=== PATIENT | male | born 1975 | race Caucasian/White ===

== ENCOUNTER → 2021-02-26 | Outpatient (CLI) | payer BC ==
--- NOTE | 2021-02-26 11:07 | XR ---
EXAMINATION TYPE: XR chest 2V DATE OF EXAM: 02/26/2021 COMPARISON: NONE HISTORY: Cough and congestion for 3 weeks. TECHNIQUE: Frontal and lateral views of the chest are obtained. FINDINGS: There is no focal air space opacity, pleural effusion, or pneumothorax seen. The cardiac silhouette size is within normal limits. The osseous structures are intact. IMPRESSION: No suspicious acute pulmonary process.
== END | disposition home or self-care (01) ==
LOC: RADXRYALE 10:45
PROVIDERS: ATTEND Physician Assistant Medical
DX: R09.89 Other specified symptoms and signs involving the circulatory and respiratory systems (principal)
CPT/HCPCS: 71046

== ENCOUNTER → 2022-01-20 | Outpatient (CLI) | payer BC ==
--- NOTE | 2022-01-20 10:15 | XR ---
EXAMINATION TYPE: XR chest 2V DATE OF EXAM: 01/20/2022 COMPARISON: 02/26/2021 INDICATION: Pain behind shoulder blade TECHNIQUE: Frontal and lateral views of the chest are obtained. FINDINGS: The heart size is normal. The pulmonary vasculature is normal. The lungs are clear. Osseous structures appear unremarkable. There is some scoliosis through the tho racic spine which is stable. IMPRESSION: 1. No acute pulmonary process.
== END | disposition home or self-care (01) ==
LOC: RADXRYALE 09:39
PROVIDERS: ATTEND Physician Assistant Medical
DX: R10.11 Right upper quadrant pain (principal); E11.9 Type 2 diabetes mellitus without complications
CPT/HCPCS: 71046

== ENCOUNTER → 2022-02-03 | Outpatient (CLI) | payer BC ==
--- NOTE | 2022-02-03 12:58 | US ---
EXAMINATION TYPE: US abdomen limited DATE OF EXAM: 02/03/2022 COMPARISON: NONE CLINICAL HISTORY: R10.11 RT UPPER QUADRANT PAIN. RUQ pain. EXAM MEASUREMENTS: Liver Length: 15.1 cm Gallbladder Wall: 0.20 cm CBD: 0.33 cm Right Kidney: 12.8 x 6.1 x 6.2 cm Limited due to gas and patient body habitus. Pancreas: Limited visibility. Liver: Appears coarse/heterogeneous in echotexture. Gallbladder: Hyperechoic area seen that appears to be attached to the gallbladder wall: 0.4 x 0.3 x 0.2 cm. Evidence for sonographic Mata's sign: No CBD: Portions seen appear wnl Right Kidney: No hydronephrosis or masses seen. Appears slightly enlarged. Visualized liver appears within normal limits. Visualized gallbladder shows no shadowing mobile galls tones. No right-sided hydronephrosis. Possible tiny 3 mm polyp. The visualized pancreas unremarkable. IMPRESSION: No gallstones or ultrasound evidence for acute cholecystitis.
== END | disposition home or self-care (01) ==
LOC: RADUSWWP 12:18
PROVIDERS: ATTEND Family Medicine
DX: R10.11 Right upper quadrant pain (principal)
CPT/HCPCS: 76705

== ENCOUNTER 2022-03-11 09:11 | Day surgery (SDC) | payer BC ==
[~2022-03-11 09:11] MED LIST: LACTATED RINGERS 1,000 ML IV SCH
[2022-03-11 09:54] LABS: Glucose,Whole Blood 103 mg/dL (70-110)
[2022-03-11 09:55] VITALS: RESP 16; TEMP 97
[2022-03-11] MEDS ORDERED: PROPOFOL 10 MG/ML 20 ML VIAL IV ONE (10:52)
--- NOTE | 2022-03-11 11:10 | P.PCN ---
Date of Procedure: 03/11/22 Procedure(s) Performed: BRIEF HISTORY: Patient is a 46-year-old pleasant white male scheduled for an elective colonoscopy as a part of screening for colorectal neoplasia. PROCEDURE PERFORMED: Colonoscopy with snare polypectomy. PREOPERATIVE DIAGNOSIS: Screening for colon cancer. IV sedation per Anesthesia. PROCEDURE: After informed consent was obtained, the patient, was brought into the endoscopy unit. IV sedation was administered by Anesthesia under continuous monitoring. Digital rectal examination was normal. Initially the Olympus CF-160 flexible video colonoscope was then inserted in the rectum, gradually advanced into the cecum without any difficulty. Careful examination was performed as the scope was gradually being withdrawn. Ileocecal valve and the appendiceal orifice were visualized and appeared normal. Prep was excellent. Mucosa of the cecum, ascending colon, a normal. In the transverse colon there was a 4 mm and 5 mm sessile polyp removed by snare polypectomy. In the sigmoid colon there was a 5 mm and 1 cm polyp removed by snare polypectomy. Rest of the transverse colon, descending colon, sigmoid colon, and rectum appeared normal. Retroflexion was performed in the rectum and no lesions were seen. The patient tolerated the procedure well. IMPRESSION: 4 mm and 5 mm transverse colon polyp status post polypectomy 3 mm and 1 cm sigmoid colon polyp status post polypectomy RECOMMENDATIONS: Findings of this examination were discussed with the patient as his family. He was advised to follow with the biopsy results. If the biopsy reveals adenoma he can have a repeat colonoscopy in 3 years.
[2022-03-11 11:29] VITALS: BP 104/70; PULSE 72
== END 2022-03-11 11:45 | disposition home or self-care (01) ==
LOC: ORWHC2ENDO 09:11
PROVIDERS: ATTEND Internal Medicine Gastroenterology
DX: Z12.11 Encounter for screening for malignant neoplasm of colon (principal); D12.5 Benign neoplasm of sigmoid colon; D12.3 Benign neoplasm of transverse colon; E11.69 Type 2 diabetes mellitus with other specified complication; E78.5 Hyperlipidemia, unspecified; I10 Essential (primary) hypertension; Z79.84 Long term (current) use of oral hypoglycemic drugs; Z79.899 Other long term (current) drug therapy
CPT/HCPCS: 88305; 45385; J2704

== ENCOUNTER 2023-03-19 16:34 | Inpatient (IN) | payer BC ==
[2023-03-19] MEDS ORDERED: KETOROLAC 15 MG/ML 1 ML VIAL IVP STA (16:55)
[2023-03-19] MEDS ORDERED: ONDANSETRON 4 MG/2 ML VIAL IVP STA (16:55)
--- NOTE | 2023-03-19 16:55 | ED ---
General Adult HPI <Shahriar Vargas - Last Filed: 03/19/23 16:55> <Dalia Arredondo - Last Filed: 03/20/23 02:02> - General Stated complaint: AMS N/V/D rash Time Seen by Provider: 03/19/23 20:15 - History of Present Illness Initial comments: A 47-year-old male presenting to the ED with chief complaint of headache. Per , last week onset of rash and headache. Seen by PCP and was told symptoms likely viral in nature. Given a prednisone shot. Since then he reports continuous symptoms. Additionally last night states patient started to ex perience nausea, vomiting, and confusion. (AliciaShahriar) 47 year old male presents emergency department with chief complaint of rash and fever. Patient developed the rash on Thursday. It was located all over his body. Denies that it is pruritic. He was seen by his primary care on Thursday. He was diagnosed with a viral syndrome and was started on prednisone. States that the patient has gotten progressively worse. Over the past couple of days the patient has not been able to eat or drink anything. He has had significant nausea with vomiting. Unable to hold anything down. He has also developed a fever. He took Tylenol at 1 PM. Admits to a headache which waxes and wanes. Denies any neck pain. No shortness of breath however it is noted that the patient is hypoxic with oxygen saturations in the mid 80s. He denies cough. No chest pain. No abdominal pain. No changes in his bladder habits. Does admit to diarrhea. No sick contacts. No history of intravenous drug use. states that the patient has been extremely fatigued and slow to respond. Denies any slurred speech. Patient remains alert and oriented. 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 <FainaShahriar wheat - Last Filed: 03/19/23 16:55> ROS Other: All systems not noted in ROS Statement are negative. <Dalia Arredondo - Last Filed: 03/20/23 02:02> ROS Statement: Those systems with pertinent positive or pertinent negative responses have been documented in the HPI. Past Medical History Past Medical History: Diabetes Mellitus, Hyperlipidemia, Hypertension Additional Past Medical History / Comment(s): HAS FREECopybarYLE BS MONITORING DEVICE. History of Any Multi-Drug Resistant Organisms: None Reported Additional Past Surgical History / Comment(s): VASECTOMY. WISDOM TEETH Past Anesthesia/Blood Transfusion Reactions: No Reported Reaction Past Psychological History: No Psychological Hx Reported Smoking Status: Never smoker Past Alcohol Use History: Rare Past Drug Use History: None Reported <FainaShahriar wheat - Last Filed: 03/19/23 16:55> General Exam General appearance: alert, other (Appears fatigued) Head exam: Present: atraumatic, normocephalic, normal inspection Eye exam: Present: normal appearance, PERRL, EOMI. Absent: scleral icterus, conjunctival injection, periorbital swelling ENT exam: Present: normal exam, mucous membranes moist Neck exam: Present: normal inspection. Absent: tenderness, meningismus, lymphadenopathy Respiratory exam: Present: normal lung sounds bilaterally. Absent: respiratory distress, wheezes, rales, rhonchi, stridor Cardiovascular Exam: Present: regular rate, normal rhythm, normal heart sounds. Absent: systolic murmur, diastolic murmur, rubs, gallop, clicks GI/Abdominal exam: Present: soft, normal bowel sounds. Absent: distended, tenderness, guarding, rebound, rigid Extremities exam: Present: normal inspection, full ROM, normal capillary refill. Absent: tenderness, pedal edema, joint swelling, calf tenderness Back exam: Present: normal inspection Neurological exam: Present: alert, oriented X3, CN II-XII intact Psychiatric exam: Present: normal affect, normal mood Skin exam: Present: warm, dry, diaphoretic. Absent: rash <Dalia Arredondo - Last Filed: 03/20/23 02:02> Course Vital Signs 03/19/23 03/19/23 03/19/23 16:47 19:58 21:00 Temperature 99.2 F 102.7 F H Pulse Rate 82 94 Respiratory 20 18 20 Rate Blood Pressure 115/71 158/84 158/84 O2 Sat by Pulse 99 100 90 L Oximetry 03/19/23 03/19/23 03/20/23 21:01 22:04 00:51 Temperature 97.5 F L 97.9 F Pulse Rate 78 75 Respiratory 20 20 Rate Blood Pressure 121/64 124/83 O2 Sat by Pulse 90 L 97 99 Oximetry Medical Decision Making - Lab Data Result diagrams: 03/19/23 20:05 03/19/23 20:05 <Dalia Arredondo - Last Filed: 03/20/23 02:02> - Medical Decision Making Was pt. sent in by a medical professional or institution (, PA, ELECTRONIC WARFARE TECHNICIAN, urgent care, hospital, or long-term...) When possible be specific @ -No Did you speak to anyone other than the patient for history (EMS, parent, family, police, friend...)? What history was obtained from this source @ -Patient's does provide history Did you review nursing and triage notes (agree or disagree)? Why? @ -I reviewed and agree with nursing and triage notes Were old charts reviewed (outside hosp., previous admission, EMS record, old EKG, old radiological studies, urgent care reports/EKG's, long-term records)? Report findings @ -No old charts were reviewed Differential Diagnosis (chest pain, altered mental status, abdominal pain women, abdominal pain men, vaginal bleeding, weakness, fever, dyspnea, syncope, headache, dizziness, GI bleed, back pain, seizure, CVA, palpatations, mental health, musculoskeletal)? @ -Differential Fever: Pneumonia, viral URI, endocarditis, myocarditis, pericarditis, otitis, sinusitis, peritonsillar Abscess, retropharyngeal Abscess, epiglottitis, peritonitis, appendicitis, Tiki cystitis, diverticulitis, hepatitis, colitis, UTI, PID, TOA, pyelonephritis, prostatitis, epididymitis, meningitis, encephalitis, pulmonary embolism, CVA, thyroid storm, pancreatitis, adrenal c risis, cavernous sinus thrombosis, this is not meant to be an all-inclusive list. EKG interpreted by me (3pts min.). @ -Yes and demonstrates sinus rhythm with a rate of 81. MA interval 156. QRS 106. QTC 403. Inverted T waves in 2, 3, aVF. No acute ST segment elevations X-rays interpreted by me (1pt min.). @ -Yes and demonstrates no acute intrathoracic process CT interpreted by me (1pt min.). @ -Yes and demonstrates no acute intracranial process U/S interpreted by me (1pt. min.). @ -None done What testing was considered but not performed or refused? (CT, X-rays, U/S, labs)? Why? @ -LP - patient reports resolution of headache with fever control What meds were considered but not given or refused? Why? @ -None Did you discuss the management of the patient with other professionals (professionals i.e. , PA, ELECTRONIC WARFARE TECHNICIAN, lab, RT, psych nurse, director of social media marketing, campaign assistant, teacher, promotions officer, transplant case manager)? Give summary @ -With Dr. Ellis who agreed to admit the patient. Was smoking cessation discussed for >3mins.? @ -No Was critical care preformed (if so, how long)? @ -No Were there social determinants of health that impacted care today? How? (Homelessness, low income, unemployed, alcoholism, drug addiction, tr ansportation, low edu. Level, literacy, decrease access to med. care, shelter, rehab)? @ -No Was there de-escalation of care discussed even if they declined (Discuss DNR or withdrawal of care, Hospice)? DNR status @ -No What co-morbidities impacted this encounter? (DM, HTN, Smoking, COPD, CAD, Cancer, CVA, ARF, Chemo, Hep., AIDS, mental health diagnosis, sleep apnea, morbid obesity)? @ -Diabetes mellitus Was patient admitted / discharged? Hospital course, mention meds given and route, prescriptions, significant lab abnormalities, going to OR and other pertinent info. @ -Upon arrival patient was placed into room 22. A thorough history and physical exam was performed. Patient does have fever which is treated with Motrin. Laboratory studies were conducted. Chest x-ray is performed due to his hypoxia. Patient has mild leukocytosis likely secondary to steroid use. Viral swab is negative. He is placed on 2 L oxygen due to his hypoxia. I discussed diagnosis, differential and treatment options. Patient will be admitted for fluids, antipyretics and nausea medications. He is reevaluated after these medications have been given and states that he has marked improvement in his symptoms. Headache has resolved with fever control. He has no neck stiffness. Patient was agreeable to admission. Spoke with Dr. Barnett who agreed to admit the patient. I will place infectious disease on consult Undiagnosed new problem with uncertain prognosis? @ -Yes Drug Therapy requiring intensive monitoring for toxicity (Heparin, Nitro, Insulin, Cardizem)? @ -No Were any procedures done? @ -No Diagnosis/symptom? @ -Acute rash, acute pyrexia, hypoxia, nausea and vomiting Acute, or Chronic, or Acute on Chronic? @ -Acute Uncomplicated (without systemic symptoms) or Complicated (systemic symptoms)? @ -Complicated Side effects of treatment? @ -No Exacerbation, Progression, or Severe Exacerbation? @ -No Poses a threat to life or bodily function? How? (Chest pain, USA, NM, pneumonia, PE, COPD, DKA, ARF, appy, cholecystitis, CVA, Diverticulitis, Homicidal, Suicidal, threat to staff... and all critical care pts) @ -No (Dalia Arredondo) - Lab Data Lab Results 03/19/23 03/19/23 03/19/23 Range/Units 00:51 20:05 20:05 WBC 13.2 H (3.8-10.6) k/uL RBC 4.83 (4.30-5.90) m/uL Hgb 16.0 (13.0-17.5) gm/dL Hct 46.1 (39.0-53.0) % MCV 95.5 (80.0-100.0) fL MCH 33.1 (25.0-35.0) pg MCHC 34.7 (31.0-37.0) g/dL RDW 12.8 (11.5-15.5) % Plt Count 191 (150-450) k/uL MPV 7.5 Neutrophils % 74 % Lymphocytes % 16 % Monocytes % 7 % Eosinophils % 0 % Basophils % 0 % Neutrophils # 9.8 H (1.3-7.7) k/uL Lymphocytes # 2.1 (1.0-4.8) k/uL Monocytes # 0.9 (0-1.0) k/uL Eosinophils # 0.0 (0-0.7) k/uL Basophils # 0.0 (0-0.2) k/uL Sodium 135 L (137-145) mmol/L Potassium 4.5 (3.5-5.1) mmol/L Chloride 95 L (98-107) mmol/L Carbon Dioxide 27 (22-30) mmol/L Anion Gap 13 mmol/L BUN 23 H (9-20) mg/dL Creatinine 1.19 (0.66-1.25) mg/dL Est GFR (CKD-EPI)AfAm 84 (>60 ml/min/1.73 sqM) Est GFR (CKD-EPI)NonAf 73 (>60 ml/min/1.73 sqM) Glucose 203 H (74-99) mg/dL Lactic Ac Sepsis Rflx Plasma Lactic Acid Valdo 1.1 (0.7-2.0) mmol/L Calcium 9.5 (8.4-10.2) mg/dL Total Bilirubin 1.6 H (0.2-1.3) mg/dL AST 31 (17-59) U/L ALT 29 (4-49) U/L Alkaline Phosphatase 70 (38-126) U/L Troponin I (0.000-0.034) ng/mL Total Protein 8.4 H (6.3-8.2) g/dL Albumin 4.7 (3.5-5.0) g/dL Influenza Type A (PCR) (Not Detectd) Influenza Type B (PCR) (Not Detectd) RSV (PCR) (Not Detectd) SARS-CoV-2 (PCR) (Not Detectd) 03/19/23 03/19/23 03/19/23 Range/Units 20:05 20:05 20:25 WBC (3.8-10.6) k/uL RBC (4.30-5.90) m/uL Hgb (13.0-17.5) gm/dL Hct (39.0-53.0) % MCV (80.0-100.0) fL MCH (25.0-35.0) pg MCHC (31.0-37.0) g/dL RDW (11.5-15.5) % Plt Count (150-450) k/uL MPV Neutrophils % % Lymphocytes % % Monocytes % % Eosinophils % % Basophils % % Neutrophils # (1.3-7.7) k/uL Lymphocytes # (1.0-4.8) k/uL Monocytes # (0-1.0) k/uL Eosinophils # (0-0.7) k/uL Basophils # (0-0.2) k/uL Sodium (137-145) mmol/L Potassium (3.5-5.1) mmol/L Chloride (98-107) mmol/L Carbon Dioxide (22-30) mmol/L Anion Gap mmol/L BUN (9-20) mg/dL Creatinine (0.66-1.25) mg/dL Est GFR (CKD-EPI)AfAm (>60 ml/min/1.73 sqM) Est GFR (CKD-EPI)NonAf (>60 ml/min/1.73 sqM) Glucose (74-99) mg/dL Lactic Ac Sepsis Rflx Plasma Lactic Acid Valdo 2.5 H* (0.7-2.0) mmol/L Calcium (8.4-10.2) mg/dL Total Bilirubin (0.2-1.3) mg/dL AST (17-59) U/L ALT (4-49) U/L Alkaline Phosphatase (38-126) U/L Troponin I <0.012 (0.000-0.034) ng/mL Total Protein (6.3-8.2) g/dL Albumin (3.5-5.0) g/dL Influenza Type A (PCR) Not Detected (Not Detectd) Influenza Type B (PCR) Not Detected (Not Detectd) RSV (PCR) Not Detected (Not Detectd) SARS-CoV-2 (PCR) Not Detected (Not Detectd) 03/19/23 Range/Units 21:17 WBC (3.8-10.6) k/uL RBC (4.30-5.90) m/uL Hgb (13.0-17.5) gm/dL Hct (39.0-53.0) % MCV (80.0-100.0) fL MCH (25.0-35.0) pg MCHC (31.0-37.0) g/dL RDW (11.5-15.5) % Plt Count (150-450) k/uL MPV Neutrophils % % Lymphocytes % % Monocytes % % Eosinophils % % Basophils % % Neutrophils # (1.3-7.7) k/uL Lymphocytes # (1.0-4.8) k/uL Monocytes # (0-1.0) k/uL Eosinophils # (0-0.7) k/uL Basophils # (0-0.2) k/uL Sodium (137-145) mmol/L Potassium (3.5-5.1) mmol/L Chloride (98-107) mmol/L Carbon Dioxide (22-30) mmol/L Anion Gap mmol/L BUN (9-20) mg/dL Creatinine (0.66-1.25) mg/dL Est GFR (CKD-EPI)AfAm (>60 ml/min/1.73 sqM) Est GFR (CKD-EPI)NonAf (>60 ml/min/1.73 sqM) Glucose (74-99) mg/dL Lactic Ac Sepsis Rflx Y Plasma Lactic Acid Valdo (0.7-2.0) mmol/L Calcium (8.4-10.2) mg/dL Total Bilirubin (0.2-1.3) mg/dL AST (17-59) U/L ALT (4-49) U/L Alkaline Phosphatase (38-126) U/L Troponin I (0.000-0.034) ng/mL Total Protein (6.3-8.2) g/dL Albumin (3.5-5.0) g/dL Influenza Type A (PCR) (Not Detectd) Influenza Type B (PCR) (Not Detectd) RSV (PCR) (Not Detectd) SARS-CoV-2 (PCR) (Not Detectd) Disposition <Shahriar Vargas - Last Filed: 03/19/23 16:55> Is patient prescribed a controlled substance at d/c from ED?: No Time of Disposition: 23:20 Decision to Admit Reason: Admit from EC Decision Date: 03/19/23 Decision Time: 23:20 <Dalia Arredondo - Last Filed: 03/20/23 02:02> Clinical Impression: Fever, Hypoxia, Nausea & vomiting Disposition: ADMITTED IP TO THIS HOSP Condition: Stable
--- NOTE | 2023-03-19 18:39 | CT ---
EXAMINATION TYPE: CT brain wo con DATE OF EXAM: 03/19/2023 COMPARISON: None HISTORY: AMS CT DLP: 1111 mGycm. Automated Exposure Control for Dose Reduction was Utilized. TECHNIQUE: CT scan of the head is performed without contrast. FINDINGS: There is no acute intracranial hemorrhage, mass effect, or midline shift identified. The v entricles and sulci are within normal limits in size. The globes are intact and the visualized sinuse s are clear. IMPRESSION: No acute intracranial hemorrhage, mass effect, or midline shift is seen.
[2023-03-19 20:25] LABS: Basophils % (A) 0 %; Eosinophils % (A) 0 %; HCT 46.1 % (39.0-53.0); Lymphocytes # (A) 2.1 k/uL (1.0-4.8); Lymphocytes % (A) 16 %; MCH 33.1 pg (25.0-35.0); MCHC 34.7 g/dL (31.0-37.0); MCV 95.5 fL (80.0-100.0); Mean Platelet Volume 7.5; Monocytes # (A) 0.9 k/uL (0-1.0); Monocytes % (A) 7 %; Neutrophils # (A) 9.8 k/uL (1.3-7.7); Neutrophils % (A) 74 %; Platelet Count 191 k/uL (150-450); RBC 4.83 m/uL (4.30-5.90); RDW 12.8 % (11.5-15.5); WBC 13.2 k/uL (3.8-10.6)
[2023-03-19 20:35] LABS: ALT 29 U/L (4-49); AST 31 U/L (17-59); African American GFR (CKD) 84 (>60 ml/min/1.73 sqM); Albumin 4.7 g/dL (3.5-5.0); Alkaline Phosphatase 70 U/L (38-126); Anion Gap 13 mmol/L; Blood Urea Nitrogen 23 mg/dL (9-20); Calcium 9.5 mg/dL (8.4-10.2); Carbon Dioxide 27 mmol/L (22-30); Chloride 95 mmol/L (98-107); Glucose 203 mg/dL (74-99); Non-African American GFR(CKD) 73 (>60 ml/min/1.73 sqM); Potassium 4.5 mmol/L (3.5-5.1); Sodium 135 mmol/L (137-145); Total Bilirubin 1.6 mg/dL (0.2-1.3); Total Protein 8.4 g/dL (6.3-8.2)
[2023-03-19] MEDS ORDERED: IBUPROFEN 600 MG TAB PO STA (20:44)
[2023-03-19] MEDS ORDERED: SODIUM CHLORIDE 0.9% 2,000 ML IV ONE (20:47)
--- NOTE | 2023-03-19 21:16 | XR ---
EXAMINATION: XR chest 2V: 03/19/2023 9:06 PM CLINICAL INDICATION: Cough/pain TECHNIQUE: Departmental protocol COMPARISON: 01/20/2022 FINDINGS: The lungs are clear. The pleural spaces are negative. The cardiac silhouette is not enlarged. The remainder of the mediastinal silhouette is unremarkable. The skeletal structures and soft tissues are negative for acute findings. IMPRESSION: No acute process.
[2023-03-19] MEDS ORDERED: NALOXONE 0.4 MG/ML 1 ML VIAL IV PRN (23:15)
[2023-03-19] MEDS ORDERED: IBUPROFEN 600 MG TAB PO PRN (23:15)
[2023-03-19] MEDS ORDERED: ONDANSETRON 4 MG/2 ML VIAL IVP PRN (23:15)
[2023-03-20 00:11] LABS: Glucose,Whole Blood 171 mg/dL (70-110)
[2023-03-20] MEDS: SODIUM CHLORIDE 0.9% 1,000 ML IV SCH ×4 (00:42→23:37)
[2023-03-20] MEDS: ATORVASTATIN 10 MG TAB PO SCH ×2 (00:49→20:56)
[2023-03-20] MEDS: lisinopriL 20 MG TAB PO SCH ×2 (00:49→20:56)
[2023-03-20] MEDS ORDERED: DEXTROSE 50% SYRINGE 50 ML IVP PRN ×2 (03:51)
--- NOTE | 2023-03-20 04:10 | P.HPIM ---
History of Present Illness H&P Date: 03/19/23 Chief Complaint: repeated nausea and vomiting 47 year old male with hypertension , DM since Thursday , he started having malaise , and generalized rash, described as reddness and some papules , all over his body. non pruritic. denies any recent camping, or hiking , no known sick contacts. also having some fevers, and headache. with feeling fatigued. he saw his PCP on Thursday , who gave him a shot of steroids. and told him he got a viral syndrome. On Thursday he felt better and went to work, but was very slow, weak, and tired all day. Today , , he started throwing up and having diarrhea , non bloody . with high fever, for which he took tylenol, poor appetite, but denies any runny nose, cough, chest pain , SOB, abd pain, or changes in urinary habits. due to persistence of symptoms , he decided to come in for evaluation , denies any focal neuro deficits. , rash has been clearing his lower extremity and abd . he has never experienced anything like this before review of systems Pertinent positives as noted in HPI. All other systems were reviewed and are negative on exam Constitutional: No acute distress, conversant, Eyes: Anicteric sclerae, moist conjunctiva, Pupils equal round reactive to light ENMT: NC/AT Oropharynx clear, no erythema, or exudates Neck: Supple, no masses, or JVD No carotid bruits No thyromegaly Lungs: Clear to auscultation Clear to percussion Normal respiratory effort, no accessory muscle use Cardiovascular: Heart regular in rate and rhythm, No murmurs, gallops, or rubs No peripheral edema Abdominal: Soft Nontender, no guarding, rebound or rigidity Abdomen moving with respiration Normoactive bowel sounds No hepatomegaly, No splenomegaly No palpable mass No abdominal wall hernia noted Skin: small papular rash over face, bilateral legs. erythema with no induration over the face and upper chest and back. clears over the abd and lower extremity , non tender to palpation no warmth , no urticaria Extremities: No digital cyanosis No clubbing Pedal pulses intact and symmetrical Radial pulses intact and symmetrical No calf tenderness Psychiatric: Alert and oriented to person, place and time Appropriate affect fair judgement Neuro Muscles Strength 5/5 in all 4 extremities Sensation to light touch grossly present throughout Cranial nerves II-XII grossly intact Lymphatics: no palpable cervical or supraclavicular lymph nodes Past Medical History Past Medical History: Diabetes Mellitus, Hyperlipidemia, Hypertension Additional Past Medical History / Comment(s): HAS FREESajan BS MONITORING DEVICE. History of Any Multi-Drug Resistant Organisms: None Reported Additional Past Surgical History / Comment(s): VASECTOMY. WISDOM TEETH Past Anesthesia/Blood Transfusion Reactions: No Reported Reaction Past Psychological History: No Psychological Hx Reported Smoking Status: Never smoker Past Alcohol Use History: Rare Past Drug Use History: None Reported Medications and Allergies Home Medications Medication Instructions Recorded Confirmed Type Semaglutide [Ozempic] 0.5 mg SQ SA 03/07/22 03/19/23 History Simvastatin [Zocor] 20 mg PO HS 03/07/22 03/19/23 History lisinopriL [Zestril] 20 mg PO HS 03/07/22 03/19/23 History metFORMIN HCL 500 mg PO BID 03/07/22 03/19/23 History Janumet (Unknown Dose) 1 tab PO BID 03/19/23 03/19/23 History Allergies Allergy/AdvReac Type Severity Reaction Status Date / Time No Known Allergies Allergy Verified 03/19/23 22:48 Physical Exam Vitals: Vital Signs Temp Pulse Resp BP Pulse Ox 03/20/23 00:51 97.9 F 75 20 124/83 99 03/19/23 22:04 97.5 F L 78 20 121/64 97 03/19/23 21:01 90 L 03/19/23 21:00 20 158/84 90 L 03/19/23 19:58 102.7 F H 94 18 158/84 100 03/19/23 16:47 99.2 F 82 20 115/71 99 Intake and Output 03/19/23 03/19/23 03/20/23 14:59 22:59 06:59 Other: Weight 108.862 kg Results CBC & Chem 7: 03/19/23 20:05 03/19/23 20:05 Labs: Abnormal Lab Results - Last 24 Hours (Table) 03/19/23 03/19/23 03/19/23 Range/Units 20:05 20:05 20:05 WBC 13.2 H (3.8-10.6) k/uL Neutrophils # 9.8 H (1.3-7.7) k/uL Sodium 135 L (137-145) mmol/L Chloride 95 L (98-107) mmol/L BUN 23 H (9-20) mg/dL Glucose 203 H (74-99) mg/dL POC Glucose (mg/dL) (70-110) mg/dL Plasma Lactic Acid Valdo 2.5 H* (0.7-2.0) mmol/L Total Bilirubin 1.6 H (0.2-1.3) mg/dL Total Protein 8.4 H (6.3-8.2) g/dL 03/20/23 Range/Units 00:08 WBC (3.8-10.6) k/uL Neutrophils # (1.3-7.7) k/uL Sodium (137-145) mmol/L Chloride (98-107) mmol/L BUN (9-20) mg/dL Glucose (74-99) mg/dL POC Glucose (mg/dL) 171 H (70-110) mg/dL Plasma Lactic Acid Valdo (0.7-2.0) mmol/L Total Bilirubin (0.2-1.3) mg/dL Total Protein (6.3-8.2) g/dL Assessment and Plan Assessment: 47 year old male with DM , hypertension , presented with nausea and vomiting, I discussed the case with ED doc and I accepted the admission for Sepsis secondary to underlying viral infection possible gastroenteritis with anticipated length of stay > 2 midnights sepsis secondary to underlying viral gastroenteritis , rule out bacterial infection check blood cultures acute respi viral panel negative for COVID , RSV and influenza supportive care IVF hydration with normal saline s/p 2 L boluses , continue with 130 cc per hour tylenol for fever, zofran 4mg IVP q8hr PRN for nausea and vomiting Protonix po daily 40 mg po monitor vital signs lactic acidosis , resolved 2.5 --> 1.1 leukocytosis 13.2 , and fever, [address] negative for acute pathology CXR no acute pathology renal function BN 23, Cr 1.19 K 4.5 chronic conditions DM , insulin sliding scale , hold metformin and ozempic Hypertension resume home meds lisinopril hyperlipidemia resume statin full code DVT PPX heparin sc tid 5000 units
[2023-03-20 07:45] LABS: Basophils % (A) 0 %; Eosinophils % (A) 0 %; HGB 14.7 gm/dL (13.0-17.5); Lymphocytes # (A) 1.7 k/uL (1.0-4.8); Lymphocytes % (A) 13 %; MCH 32.6 pg (25.0-35.0); MCHC 33.4 g/dL (31.0-37.0); MCV 97.6 fL (80.0-100.0); Mean Platelet Volume 7.7; Monocytes # (A) 0.7 k/uL (0-1.0); Monocytes % (A) 5 %; Neutrophils # (A) 10.8 k/uL (1.3-7.7); Neutrophils % (A) 80 %; Platelet Count 168 k/uL (150-450); RBC 4.51 m/uL (4.30-5.90); RDW 12.8 % (11.5-15.5); WBC 13.5 k/uL (3.8-10.6)
[2023-03-20] MEDS ORDERED: HEPARIN SODIUM,PORCINE 5,000 UNIT/ML 1 ML VIAL SQ SCH (08:00)
[2023-03-20 08:01] LABS: Glucose,Whole Blood 161 mg/dL (70-110)
[2023-03-20 08:10] LABS: ALT 24 U/L (4-49); AST 25 U/L (17-59); African American GFR (CKD) >90 (>60 ml/min/1.73 sqM); Albumin 3.9 g/dL (3.5-5.0); Albumin/Globulin Ratio 1.2; Alkaline Phosphatase 63 U/L (38-126); Anion Gap 10 mmol/L; Blood Urea Nitrogen 22 mg/dL (9-20); Calcium 8.5 mg/dL (8.4-10.2); Carbon Dioxide 26 mmol/L (22-30); Chloride 101 mmol/L (98-107); Globulin 3.2 g/dL; Glucose 161 mg/dL (74-99); Lipase 96 U/L (23-300); Non-African American GFR(CKD) 80 (>60 ml/min/1.73 sqM); Potassium 4.5 mmol/L (3.5-5.1); Sodium 137 mmol/L (137-145); Total Bilirubin 1.4 mg/dL (0.2-1.3); Total Protein 7.1 g/dL (6.3-8.2)
[2023-03-20] MEDS: ACETAMINOPHEN TAB 325 MG TAB PO PRN ×3 (08:21→23:07)
[2023-03-20] MEDS: INSULIN ASPART (NovoLOG) 100 UNIT/ML VIAL SQ SCH ×4 (08:22→20:56)
[2023-03-20 12:52] LABS: Glucose,Whole Blood 134 mg/dL (70-110)
[2023-03-20] MEDS: KETOROLAC 15 MG/ML 1 ML VIAL IVP SCH ×3 (16:33→22:29)
--- NOTE | 2023-03-20 16:38 | P.PN ---
Subjective Progress Note Date: 03/20/23 Hospital course: Patient is a 47-year-old male with a past medical history of hypertension, hyperlipidemia, and [id number] diabetes mellitus. He presented to the emergency department on 03/19/23 secondary to intractable nausea and vomiting, generalized rash, and high fevers 1 week. Patient reports this began approximately one week ago he started feeling fatigued and began noticing a red raised rash develop and quickly spread over his entire body and face. Patient's at bedside described this rash stating it looked like little tiny pimples everywhere. Patient reports he then developed some nausea, vomiting and diarrhea so he went to see his primary care doctor on Thursday where he was diagnosed with a virus and started on steroids. Patient reports he did have significant improvement with the rash but the nausea, vomiting, and diarrhea has been persistent and has been accompanied by high fevers, fatigue, chills, and diaphoresis. Patient underwent full evaluation in the emergency department. Labs completed and reviewed. CBC showing leukocytosis with WBC count of 13.2. BMP showing mild prerenal azotemia with BUN of 23. Liver profile showing elevated total bili of 1.6. Lactate elevated at 2.5 with repeat lactate after bolus of 1.1. Influenza A, influenza B, RSV, and Covid PCR were all negative patient was admitted under our services with consultation to infectious disease. Physical exam: Vital signs reviewed and stable. General: Patient appears acutely ill, flushed appearance Derm: Skin warm and dry, normal coloration for ethnicity.Cheeks flushed. Small papular rash over face, legs, and left shoulder Head: Atraumatic, normocephalic and symmetric. Eyes: EOMs intact, no lid lag, and anicteric sclera Mouth: no lip lesions, mucus membranes moist. 2 small white papules oral pharynx Cardiovascular: tachycardic rate and rhythm with normal S1S2, no murmur, positive posterior tibial pulses bilaterally, and cap refill < 2 seconds. Lungs: Respirations even, regular, and unlabored on room air. Lungs CTA bilaterally, no rhonchi, no rales, no wheezing, and no accessory muscle usage. Abdominal: soft, nontender to palpation, no guarding, no appreciable organomegaly Ext: ROM intact. No gross muscle atrophy, no edema, no contractures Neuro: Speech clear, face symmetrical and CN II-XII grossly intact with no noted focal neuro deficits Psych: Alert and oriented to person, place, time, and situation. Appropriate and pleasant affect. Assessment and Plan of Care: Intractable nausea, vomiting, and diarrhea likely secondary to Viral gastroenteritis Leukocytosis Pyrexia Lactic acidosis -Orders placed for stool culture, blood culture, strep, and West Nile virus antibody IgG and IgM -Order placed for repeat CBC, CMP, and magnesium tomorrow morning. Continue telemetry monitoring Continue IV fluid hydration with 0.9% normal saline at 130 mL's per hour. Placed patient on scheduled Toradol 15 mg IVP every 6 hours Continue with Tylenol 650 mg every 6 hours as needed for mild pain/discomfort. Infectious disease following and discussed plan of care with Dr. River Ms. recommending patient undergo spinal tap and starting patient on antibiotics with ampicillin 2000 mg every 4 hours, Rocephin 2 g every 12 hours, and vancomycin 1750 mg every 12 hours. Hypertension Continue to monitor vital signs and continue daily medication regimen with lisinopril 20 mg nightly Hyperlipidemia Continue daily medication regimen with atorvastatin 10 mg nightly. Type II [id number] diabetes mellitus with hyperglycemia Hold oral hypoglycemic medications in place patient on glycemic protocol with NovoLog sliding scale to maintain tight glycemic control throughout hospitalization. Data review Morning labs reviewed and stable with the exception of pyrexia with elevated temp of 103.0F orally, heart rate 92, respiratory rate 18, blood pressure 147/67 and SpO2 of 95% on 2 L. Morning labs reviewed. CBC showing persistent leukocytosis with WBC count of 13.5. BMP showing prerenal azotemia with BUN of 22 and continued hyperglycemia with glucose of 171. Bilirubin decreasing from 1.6 down to 1.4. CODE STATUS: Full code DVT prophylaxis: Lovenox Discussed with: Patient, patient's , RN, an infectious disease physician Anticipated discharge date: Clinical course to determine Anticipated discharge place: Home Patient was seen independently by Nurse Pracitioner. This document was prepared using [employer] dictation software. Please allow for errors in sas programmer remote, while rare they do occur. Donell Ford NP rendered care for this patient independently, reviewed the findings and plan as documented in the note above. I did not physically speak with or examine the patient on this date. Objective - Vital Signs Vital signs: Vital Signs Temp 103 F H 03/20/23 08:15 Pulse 92 03/20/23 08:15 Resp 18 03/20/23 08:15 BP 147/67 03/20/23 08:15 Pulse Ox 95 03/20/23 08:15 FiO2 Intake & Output 03/19/23 03/20/23 03/20/23 18:59 06:59 18:59 Weight 108.862 kg - Labs CBC & Chem 7: 03/21/23 06:41 03/21/23 06:41 Labs: Abnormal Lab Results - Last 24 Hours (Table) 03/19/23 03/19/23 03/19/23 Range/Units 20:05 20:05 20:05 WBC 13.2 H (3.8-10.6) k/uL Neutrophils # 9.8 H (1.3-7.7) k/uL Sodium 135 L (137-145) mmol/L Chloride 95 L (98-107) mmol/L BUN 23 H (9-20) mg/dL Glucose 203 H (74-99) mg/dL POC Glucose (mg/dL) (70-110) mg/dL Plasma Lactic Acid Valdo 2.5 H* (0.7-2.0) mmol/L Total Bilirubin 1.6 H (0.2-1.3) mg/dL Total Protein 8.4 H (6.3-8.2) g/dL 03/20/23 03/20/23 03/20/23 Range/Units 00:08 06:30 06:30 WBC 13.5 H (3.8-10.6) k/uL Neutrophils # 10.8 H (1.3-7.7) k/uL Sodium (137-145) mmol/L Chloride (98-107) mmol/L BUN 22 H (9-20) mg/dL Glucose 161 H (74-99) mg/dL POC Glucose (mg/dL) 171 H (70-110) mg/dL Plasma Lactic Acid Valdo (0.7-2.0) mmol/L Total Bilirubin 1.4 H (0.2-1.3) mg/dL Total Protein (6.3-8.2) g/dL 03/20/23 Range/Units 07:55 WBC (3.8-10.6) k/uL Neutrophils # (1.3-7.7) k/uL Sodium (137-145) mmol/L Chloride (98-107) mmol/L BUN (9-20) mg/dL Glucose (74-99) mg/dL POC Glucose (mg/dL) 161 H (70-110) mg/dL Plasma Lactic Acid Valdo (0.7-2.0) mmol/L Total Bilirubin (0.2-1.3) mg/dL Total Protein (6.3-8.2) g/dL
[2023-03-20] MEDS ORDERED: VANCOMYCIN IV PER PHARMACY 1 EACH MISC MISCELLANE PRN (16:47)
--- NOTE | 2023-03-20 16:51 | FL ---
PROCEDURE: FL guided Lumbar puncture. DATE: 03/20/2023 CLINICAL HISTORY: 47-year-old male with fever, suspected meningitis COMPLICATIONS: None SEDATION: Managed by radiology nursing. The patient and the patient's vital signs were monitored by qualified independent radiology personnel. TECHNIQUE: The procedure and potential risks were explained to patient and an informed consent was obtained with teach back. Site and side was verified. A time out was performed. The patient was placed prone on the fluoroscopy table and the L3-L4 level was localized and the skin was marked and was prepped and draped in the usual sterile fashion. Lidocaine was used for local anesthesia. Utilizing fluoroscopic guidance a 22-gauge spinal needle was placed through the skin and into the subarachnoid space. Approximately 10 mL of clear, colorless cerebral spinal fluid was obtained. The needle was removed, hemostasis achieved, and a dressing placed. The patient tolerated the procedure well and was sent back to inpatient room in [facility]. The fluid was sent to the lab for analysis. The estimated blood loss was minimal. The patient's condition was unchanged following the procedure. Fluoroscopy time: 5 seconds Total images: 1 Total DAP: 2 mGycm. IMPRESSION: Successful accumulation of approximately 10 mL of clear CSF. Laboratory analysis pending.
[2023-03-20] MEDS ORDERED: DEXAMETHASONE SOD PHOSPHATE 10 MG/ML 1 ML VIAL IVP STA ×2 (17:02→17:04)
[2023-03-20 17:14] LABS: Glucose,Whole Blood 171 mg/dL (70-110)
[2023-03-20] MEDS ORDERED: VANCOMYCIN 1,750 MG in SODIUM CHLORIDE 0.9% 500 ML 500 ML IVPB ONE (17:45)
[2023-03-20] MEDS: AMPICILLIN 2,000 MG in SODIUM CHLORIDE 0.9% 100 ML IVPB SCH ×3 (18:04→23:07)
[2023-03-20 20:24] LABS: Glucose,Whole Blood 188 mg/dL (70-110)
[2023-03-20 21:01] LABS: Appearance,CSF Clear; CSF Tube Number 2
[2023-03-20 21:02] LABS: Red Blood Cell,CSF 9 u/L (0-10)
[2023-03-20 21:05] LABS: Glucose,CSF 93 mg/dL (40-70); Total Protein,CSF 190 mg/dL (12-60)
[2023-03-20 21:07] LABS: Nucleated Cells, CSF 303 u/L (0-5)
[2023-03-20 21:08] LABS: Diff, Total Cells Cnt, CSF 100; Mononuclear WBC,CSF 36 %; Polynuclear WBC,CSF 64 %
--- NOTE | 2023-03-20 21:36 | P.CONS ---
History of Present Illness - Reason for Consult Consult date: 03/20/23 Fever nausea vomiting diarrhea Requesting physician: Dalia Arredondo - Chief Complaint Fever headache x few days - History of Present Illness Patient is a 47-year-old with a past medical history significant for diabetes mellitus hypertension hyperlipidemia presented to the ER yesterday afternoon for evaluation of headache, patient symptoms started last Thursday ini cecilioy started having a rash for the patient was evaluated by his primary care physician and has been diagnosed with a viral syndrome treated with the steroids patient started having headache also with nausea vomiting and diarrhea patient is currently having to be more of the throbbing 7-8 out of 10 and no radiation denies photophobia, denies having any URI symptoms no chest pain or shortness of breath or cough no abdominal pain no urinary symptoms, patient on presentation to the hospital did have a low-grade fever of 39.2 subsequently spiked a fever to 102.7 degrees: Height and weight patient did have a fever of 103 F this morning patient did have a white count 13.2 with a left shift creatinine has been normal enzymes are normal influenza RSV testing was negative patient did have CT of the brain that was negative for any acute process chest x-ray was negative for acute process infectious disease was consulted for further management Review of Systems Positive point and negatives has been mentioned in the HPI, complete review of systems was performed and all other systems are negative Past Medical History Past Medical History: Diabetes Mellitus, Hyperlipidemia, Hypertension Additional Past Medical History / Comment(s): HAS FREESTYLE BS MONITORING DEVICE. History of Any Multi-Drug Resistant Organisms: None Reported Additional Past Surgical History / Comment(s): VASECTOMY. WISDOM TEETH Past Anesthesia/Blood Transfusion Reactions: No Reported Reaction Past Psychological History: No Psychological Hx Reported Smoking Status: Never smoker Past Alcohol Use History: Rare Past Drug Use History: None Reported Medications and Allergies Home Medications Medication Instructions Recorded Confirmed Type Semaglutide [Ozempic] 0.5 mg SQ SA 03/07/22 03/19/23 History Simvastatin [Zocor] 20 mg PO HS 03/07/22 03/19/23 History lisinopriL [Zestril] 20 mg PO HS 03/07/22 03/19/23 History metFORMIN HCL 500 mg PO BID 03/07/22 03/19/23 History Allergies Allergy/AdvReac Type Severity Reaction Status Date / Time No Known Allergies Allergy Verified 08/24/23 22:48 Physical Exam Vitals: Vital Signs Temp Pulse Pulse Resp BP BP Pulse Ox 03/20/23 09:30 100.4 F H 03/20/23 08:15 103 F H 92 18 147/67 95 03/20/23 05:20 85 148/68 96 03/20/23 00:51 97.9 F 75 20 124/83 99 03/19/23 22:04 97.5 F L 78 20 121/64 97 03/19/23 21:01 90 L 03/19/23 21:00 20 158/84 90 L 03/19/23 19:58 102.7 F H 94 18 158/84 100 03/19/23 16:47 99.2 F 82 20 115/71 99 Intake and Output 03/20/23 03/20/23 03/20/23 06:59 14:59 22:59 Intake Total 910 Balance 910 Intake: Intake, IV Titration 910 Amount Sodium Chloride 0.9% 1, 910 000 ml @ 130 mls/hr IV . Q7H42M [facility] Rx#:[id number] Other: Weight 108.862 kg GENERAL DESCRIPTION: Middle-aged male lying in bed, no distress. No tachypnea or accessory muscle of respiration use. HEENT: Shows Pallor , no scleral icterus. Oral mucous membrane is dry. No pharyngeal erythema or thrush NECK: Trachea central, no thyromegaly. LUNGS: Unlabored breathing. Clear to auscultation anteriorly. No wheeze or crackle. HEART: S1, S2, regular rate and rhythm. No loud murmur ABDOMEN: Soft, no tenderness , guarding or rigidity, no organomegaly EXTREMITIES: No edema of feet. SKIN: No rash, no masses palpable. NEUROLOGICAL: The patient is awake, alert, oriented x3, mood and affect normal. No neck rigidity Results CBC & Chem 7: 03/24/23 05:45 03/24/23 05:45 Labs: Abnormal Lab Results - Last 24 Hours (Table) 03/19/23 03/19/23 03/19/23 Range/Units 20:05 20:05 20:05 WBC 13.2 H (3.8-10.6) k/uL Neutrophils # 9.8 H (1.3-7.7) k/uL Sodium 135 L (137-145) mmol/L Chloride 95 L (98-107) mmol/L BUN 23 H (9-20) mg/dL Glucose 203 H (74-99) mg/dL POC Glucose (mg/dL) (70-110) mg/dL Plasma Lactic Acid Valdo 2.5 H* (0.7-2.0) mmol/L Total Bilirubin 1.6 H (0.2-1.3) mg/dL Total Protein 8.4 H (6.3-8.2) g/dL 03/20/23 03/20/23 03/20/23 Range/Units 00:08 06:30 06:30 WBC 13.5 H (3.8-10.6) k/uL Neutrophils # 10.8 H (1.3-7.7) k/uL Sodium (137-145) mmol/L Chloride (98-107) mmol/L BUN 22 H (9-20) mg/dL Glucose 161 H (74-99) mg/dL POC Glucose (mg/dL) 171 H (70-110) mg/dL Plasma Lactic Acid Valdo (0.7-2.0) mmol/L Total Bilirubin 1.4 H (0.2-1.3) mg/dL Total Protein (6.3-8.2) g/dL 03/20/23 03/20/23 Range/Units 07:55 12:42 WBC (3.8-10.6) k/uL Neutrophils # (1.3-7.7) k/uL Sodium (137-145) mmol/L Chloride (98-107) mmol/L BUN (9-20) mg/dL Glucose (74-99) mg/dL POC Glucose (mg/dL) 161 H 134 H (70-110) mg/dL Plasma Lactic Acid Valdo (0.7-2.0) mmol/L Total Bilirubin (0.2-1.3) mg/dL Total Protein (6.3-8.2) g/dL Assessment and Plan (1) Meningitis Status: Acute Code(s): G03.9 - MENINGITIS, UNSPECIFIED SNOMED Code(s): 0991184 (2) Sepsis Status: Acute Code(s): A41.9 - SEPSIS, UNSPECIFIED ORGANISM SNOMED Code(s): 85635942 Plan: 1patient present to hospital with sepsis in this patient with a fever elevated white count mild tachycardia did have significant headache and also is pred ominantly GI symptoms in this patient was on his boat the day before his symptoms started acutely suspicious for meningitis with a question of viral versus Listeria in this patient with predominant GI symptoms 2-we will obtain blood cultures 3-stat lumbar puncture has been ordered and was discussed with the radiologist to be completed today 4-after completion of the LP the patient was started on dexamethasone Rocephin vancomycin and ampicillin while waiting for the work-up to be completed 5-we will check CSF for cell count differential glucose protein viral PCR as well as Listeria PCR at the bedside multiple question concern were answered and also discussed with admitting team We will follow on clinical condition and cultures to further adjust medication if needed Thank you for this consultation we will follow the patient along with you Dictation was produced using [employer] dictation software. please excuse any grammatical, word or spelling errors. Time with Patient: Greater than 30
[2023-03-20 21:39] LABS: Appearance,Urine Clear (Clear); Bilirubin,Urine Negative (Negative); Blood,Urine Negative (Negative); Color,Urine Yellow; Glucose,Urine (UA) 4+ (Negative); Leukocyte Esterase,Urine Negative (Negative); Mucus,Urine Rare /hpf; Nitrite,Urine Negative (Negative); PH, Urine 5.5 (5.0-8.0); Protein,Urine 1+ (Negative); Specific Gravity,Urine 1.039 (1.001-1.035); Urobilinogen,Urine <2.0 mg/dL (<2.0); WBC,Urine <1 /hpf (0-5)
[2023-03-20 21:42] LABS: Ketones,Urine 3+ (Negative)
[2023-03-20] MEDS: DEXAMETHASONE SOD PHOSPHATE 10 MG/ML 1 ML VIAL IVP SCH (23:08)
[2023-03-21] MEDS: AMPICILLIN 2,000 MG in SODIUM CHLORIDE 0.9% 100 ML IVPB SCH ×5 (03:07→19:53)
[2023-03-21] MEDS: DEXAMETHASONE SOD PHOSPHATE 10 MG/ML 1 ML VIAL IVP SCH (05:27)
[2023-03-21] MEDS ORDERED: VANCOMYCIN 1,750 MG in SODIUM CHLORIDE 0.9% 500 ML 500 ML IVPB SCH (06:00)
[2023-03-21 06:31] LABS: Glucose,Whole Blood 196 mg/dL (70-110)
[2023-03-21] MEDS: INSULIN ASPART (NovoLOG) 100 UNIT/ML VIAL SQ SCH ×4 (06:34→21:20)
[2023-03-21] MEDS: SODIUM CHLORIDE 0.9% 1,000 ML IV SCH ×3 (06:34→21:26)
[2023-03-21 07:20] LABS: HCT 44.4 % (39.0-53.0); HGB 14.9 gm/dL (13.0-17.5); MCH 32.4 pg (25.0-35.0); MCHC 33.6 g/dL (31.0-37.0); MCV 96.5 fL (80.0-100.0); Mean Platelet Volume 8.1; Platelet Count 170 k/uL (150-450); RDW 12.2 % (11.5-15.5); WBC 11.1 k/uL (3.8-10.6)
[2023-03-21 07:52] LABS: ALT 25 U/L (4-49); AST 27 U/L (17-59); African American GFR (CKD) >90 (>60 ml/min/1.73 sqM); Albumin/Globulin Ratio 1.3; Alkaline Phosphatase 60 U/L (38-126); Anion Gap 13 mmol/L; Blood Urea Nitrogen 24 mg/dL (9-20); Calcium 8.7 mg/dL (8.4-10.2); Carbon Dioxide 21 mmol/L (22-30); Chloride 103 mmol/L (98-107); Globulin 3.2 g/dL; Glucose 223 mg/dL (74-99); Magnesium 1.9 mg/dL (1.6-2.3); Non-African American GFR(CKD) >90 (>60 ml/min/1.73 sqM); Potassium 4.8 mmol/L (3.5-5.1); Sodium 137 mmol/L (137-145); Total Bilirubin 1.2 mg/dL (0.2-1.3); Total Protein 7.2 g/dL (6.3-8.2)
[2023-03-21 12:07] LABS: Glucose,Whole Blood 251 mg/dL (70-110)
[2023-03-21] MEDS: KETOROLAC 15 MG/ML 1 ML VIAL IVP SCH ×3 (12:07→22:01)
--- NOTE | 2023-03-21 17:14 | P.PN ---
Subjective Progress Note Date: 03/21/23 Principal diagnosis: Meningitis Patient is a 47-year-old with a past medical history significant for diabetes mellitus hypertension hyperlipidemia presented to the ER for evaluation of headache, patient initially started with a generalized body rash that was treated with steroids by the PCP for possible viral rash he also have a nausea vomiting diarrhea and headache patient did have a LP completed it shows elevated protein and glucose, WBC was also elevated. On today's evaluation that is 03/21/2023, the patient did have resolution of his fever and the patient is afebrile this morning patient is feeling better breathing comfortably headache is better 50% denies any photophobia no further nausea vomiting abdominal pain or diarrhea. Patient did have white count of 11.1, creatinine 0.87 liver enzymes are normal, patient CSF glucose 93 protein 190 nucleated cells was 303 mononuclear 36% PMNs 64% Objective - Vital Signs Vital signs: Vital Signs Temp 98.2 F 03/21/23 07:33 Pulse 65 03/21/23 07:33 Resp 16 03/21/23 07:33 BP 172/72 03/21/23 07:33 Pulse Ox 97 03/21/23 07:33 FiO2 Intake & Output 03/20/23 03/21/23 03/21/23 18:59 06:59 18:59 Intake Total 910 Balance 910 Intake: Intake, IV Titration 910 Amount Sodium Chloride 0.9% 1, 910 000 ml @ 130 mls/hr IV . Q7H42M [facility] Rx#:[id number] Other: # Voids 2 # Bowel Movements 1 - Exam GENERAL DESCRIPTION: Middle-aged male lying in bed in no distress RESPIRATORY SYSTEM: Unlabored breathing , decreased breath sounds at bases HEART: S1 S2 regular rate and rhythm , ABDOMEN: Soft , no tenderness EXTREMITIES: No edema feet - Labs CBC & Chem 7: 03/21/23 06:41 03/21/23 06:41 Labs: Abnormal Lab Results - Last 24 Hours (Table) 03/20/23 03/20/23 03/20/23 Range/Units 16:16 17:08 20:22 WBC (3.8-10.6) k/uL Carbon Dioxide (22-30) mmol/L BUN (9-20) mg/dL Glucose (74-99) mg/dL POC Glucose (mg/dL) 171 H 188 H (70-110) mg/dL Hemoglobin A1c (<=6.0) % Ur Specific [place] (1.001-1.035) Urine Protein (Negative) Urine Glucose (UA) (Negative) Urine Ketones (Negative) Urine Mucus (None) /hpf CSF Tot Nucleated Cells 303 H* (0-5) u/L CSF Glucose 93 H (40-70) mg/dL CSF Total Protein 190 H (12-60) mg/dL 03/20/23 03/21/23 03/21/23 Range/Units 21:00 06:30 06:41 WBC (3.8-10.6) k/uL Carbon Dioxide (22-30) mmol/L BUN (9-20) mg/dL Glucose (74-99) mg/dL POC Glucose (mg/dL) 196 H (70-110) mg/dL Hemoglobin A1c 6.2 H (<=6.0) % Ur Specific [place] 1.039 H (1.001-1.035) Urine Protein 1+ H (Negative) Urine Glucose (UA) 4+ H (Negative) Urine Ketones 3+ H (Negative) Urine Mucus Rare H (None) /hpf CSF Tot Nucleated Cells (0-5) u/L CSF Glucose (40-70) mg/dL CSF Total Protein (12-60) mg/dL 03/21/23 03/21/23 03/21/23 Range/Units 06:41 06:41 12:06 WBC 11.1 H (3.8-10.6) k/uL Carbon Dioxide 21 L (22-30) mmol/L BUN 24 H (9-20) mg/dL Glucose 223 H (74-99) mg/dL POC Glucose (mg/dL) 251 H (70-110) mg/dL Hemoglobin A1c (<=6.0) % Ur Specific [place] (1.001-1.035) Urine Protein (Negative) Urine Glucose (UA) (Negative) Urine Ketones (Negative) Urine Mucus (None) /hpf CSF Tot Nucleated Cells (0-5) u/L CSF Glucose (40-70) mg/dL CSF Total Protein (12-60) mg/dL Assessment and Plan (1) Meningitis Current Visit: Yes Status: Acute Code(s): G03.9 - MENINGITIS, UNSPECIFIED SNOMED Code(s): 2730977 Plan: 1patient present to hospital with sepsis in this patient with a fever elevated white count mild tachycardia did have significant headache and also is predominantly GI symptoms in this patient was on his boat the day before his symptoms started acutely suspicious for meningitis with a question of viral versus Listeria in this patient with predominant GI symptoms 2-patient did have LP and shows elevated protein and glucose and white cells mostly compatible with viral meningitis however keeping in mind mostly PMNs and moderate glucose is elevated possibility of Listeria is still there vancomycin and steroid has been discontinued we will continue the patient on amoxicillin and Rocephin while waiting for the testing on the CSF at the bedside and multiple questions and concerns were answered Dictation was produced using [employer] dictation software. please excuse any grammatical, word or spelling errors. Time with Patient: Greater than 30
[2023-03-21 17:16] LABS: Glucose,Whole Blood 269 mg/dL (70-110)
--- NOTE | 2023-03-21 17:41 | P.PN ---
"Subjective Progress Note Date: 03/21/23 Hospital course: Patient is a 47-year-old male with a past medical history of hypertension, hyperlipidemia, and oju-pzjkgcr-sjmpotkvh diabetes mellitus. He presented to the emergency department on 03/19/23 secondary to intractable nausea and vomiting, generalized rash, and high fevers 1 week. Patient reports this began approximately one week ago he started feeling fatigued and began noticing a red raised rash develop and quickly spread over his entire body and face. Patient's at bedside described this rash stating it looked like little tiny pimples everywhere. Patient reports he then developed some nausea, vomiting and diarrhea so he went to see his primary care doctor on Thursday where he was diagnosed with a virus and started on steroids. Patient reports he did have significant improvement with the rash but the nausea, vomiting, and diarrhea has been persistent and has been accompanied by high fevers, fatigue, chills, and diaphoresis. Patient underwent full evaluation in the emergency department. Labs completed and reviewed. CBC showing leukocytosis with WBC count of 13.2. BMP showing mild prerenal azotemia with BUN of 23. Liver profile showing elevated total bili of 1.6. Lactate elevated at 2.5 with repeat lactate after bolus of 1.1. Influenza A, influenza B, RSV, and Covid PCR were all negative patient was admitted under our services with consultation to infectious disease. Physical exam: Vital signs reviewed and stable. General: Patient appears acutely ill, flushed appearance Derm: Skin warm and dry, normal coloration for ethnicity. Cheeks flushed. Small papular rash over face, legs, and left shoulder appears to have significantly i mproved with only a small area to left shoulder and right leg. Head: Atraumatic, normocephalic and symmetric. Eyes: EOMs intact, no lid lag, and anicteric sclera Mouth: no lip lesions, mucus membranes moist. 2 small white papules oral pharynx Cardiovascular: tachycardic rate and rhythm with normal S1S2, no murmur, positive posterior tibial pulses bilaterally, and cap refill < 2 seconds. Lungs: Respirations even, regular, and unlabored on room air. Lungs CTA bilaterally, no rhonchi, no rales, no wheezing, and no accessory muscle usage. Abdominal: soft, nontender to palpation, no guarding, no appreciable organomegaly Ext: ROM intact. No gross muscle atrophy, no edema, no contractures Neuro: Speech clear, face symmetrical and CN II-XII grossly intact with no noted focal neuro deficits Psych: Alert and oriented to person, place, time, and situation. Appropriate and pleasant affect. Assessment and Plan of Care: Meningitis, likely viral Intractable nausea, vomiting, and diarrhea Leukocytosis Pyrexia Lactic acidosis, resolved CSF cultures resulting positive for critical total nucleated cells of 303, glucose of 93, and total protein of 190. -West Nile virus antibody IgG and IgM, PCR for listeria monocytogenes, and Corynebacterium diphtheria cultures pending. -Order placed for repeat CBC and CMP tomorrow morning. Continue telemetry monitoring Continue IV fluid hydration with 0.9% normal saline at 130 mL's per hour. Continue scheduled Toradol 15 mg IVP every 6 hours Continue with Tylenol 650 mg every 6 hours as needed for mild pain/discomfort. Infectious disease following and discussed plan of care with Dr. River. He is recommending discontinuation of vancomycin and continuation of ampicillin and Rocephin. Hypertension Continue to monitor vital signs and continue daily medication regimen with lisinopril 20 mg nightly Hyperlipidemia Continue daily medication regimen with atorvastatin 10 mg nightly. Type II xac-zyoevzy-rqofszhqo diabetes mellitus with hyperglycemia Hold oral hypoglycemic medications in place patient on glycemic protocol with NovoLog sliding scale to maintain tight glycemic control throughout hospitalization. Hemoglobin A1c 6.2%. Data review Morning labs reviewed. Temp 98.2, heart rate 65, respiratory rate 16, blood pressure 172/72, and SpO2 of 97% on room air. Morning labs reviewed. CBC showinimprovement inis with WBC count decreasing to 11.1. BMP showing hypocarbia with bicarb of 21, elevated BUN of 24, and glu cose of 223. Magnesium normal findings at 1.9. Hemoglobin A1c resulting slightly elevated at 6.2%. CSF fluid resulting positive for glucose 93, total protein of 190, and CSF total nucleated cells of 303. CODE STATUS: Full code DVT prophylaxis: Lovenox Discussed with: Patient, patient's , RN, an infectious disease physician Anticipated discharge date: Clinical course to determine Anticipated discharge place: Home Patient was seen independently by Nurse Pracitioner. This document was prepared using e|[employer] dictation software. Please allow for errors in custom seamstress, while rare they do occur. Donell Ford NP rendered care for this patient independently, reviewed the findings and plan as documented in the note above. I did not physically speak with or examine the patient on this date. Objective - Vital Signs Vital signs: Vital Signs Temp 98.2 F 03/21/23 07:33 Pulse 65 03/21/23 07:33 Resp 16 03/21/23 07:33 BP 172/72 03/21/23 07:33 Pulse Ox 97 03/21/23 07:33 FiO2 Intake & Output 03/20/23 03/21/23 03/21/23 18:59 06:59 18:59 Intake Total 910 Balance 910 Intake: Intake, IV Titration 910 Amount Sodium Chloride 0.9% 1, 910 000 ml @ 130 mls/hr IV . [id number] [facility] Rx#:[id number] Other: # Voids 2 # Bowel Movements 1 - Labs CBC & Chem 7: 03/22/23 05:02 03/22/23 05:02 Labs: Abnormal Lab Results - Last 24 Hours (Table) 03/20/23 03/20/23 03/20/23 Range/Units 12:42 16:16 17:08 WBC (3.8-10.6) k/uL Carbon Dioxide (22-30) mmol/L BUN (9-20) mg/dL Glucose (74-99) mg/dL POC Glucose (mg/dL) 134 H 171 H (70-110) mg/dL Ur Specific Jackson (1.001-1.035) Urine Protein (Negative) Urine Glucose (UA) (Negative) Urine Ketones (Negative) Urine Mucus (None) /hpf CSF Tot Nucleated Cells 303 H* (0-5) u/L CSF Glucose 93 H (40-70) mg/dL CSF Total Protein 190 H (12-60) mg/dL 03/20/23 03/20/23 03/21/23 Range/Units 20:22 21:00 06:30 WBC (3.8-10.6) k/uL Carbon Dioxide (22-30) mmol/L BUN (9-20) mg/dL Glucose (74-99) mg/dL POC Glucose (mg/dL) 188 H 196 H (70-110) mg/dL Ur Specific Jackson 1.039 H (1.001-1.035) Urine Protein 1+ H (Negative) Urine Glucose (UA) 4+ H (Negative) Urine Ketones 3+ H (Negative) Urine Mucus Rare H (None) /hpf CSF Tot Nucleated Cells (0-5) u/L CSF Glucose (40-70) mg/dL CSF Total Protein (12-60) mg/dL 03/21/23 03/21/23 Range/Units 06:41 06:41 WBC 11.1 H (3.8-10.6) k/uL Carbon Dioxide 21 L (22-30) mmol/L BUN 24 H (9-20) mg/dL Glucose 223 H (74-99) mg/dL POC Glucose (mg/dL) (70-110) mg/dL Ur Specific Jackson (1.001-1.035) Urine Protein (Negative) Urine Glucose (UA) (Negative) Urine Ketones (Negative) Urine Mucus (None) /hpf CSF Tot Nucleated Cells (0-5) u/L CSF Glucose (40-70) mg/dL CSF Total Protein (12-60) mg/dL"
[2023-03-21] MEDS: ATORVASTATIN 10 MG TAB PO SCH (19:53)
[2023-03-21] MEDS: lisinopriL 20 MG TAB PO SCH (19:54)
[2023-03-21 20:28] LABS: Glucose,Whole Blood 248 mg/dL (70-110)
[2023-03-21] MEDS: ACETAMINOPHEN TAB 325 MG TAB PO PRN (21:20)
[2023-03-22] MEDS: AMPICILLIN 2,000 MG in SODIUM CHLORIDE 0.9% 100 ML IVPB SCH ×7 (00:01→23:21)
[2023-03-22] MEDS: SODIUM CHLORIDE 0.9% 1,000 ML IV SCH ×2 (00:02→09:10)
[2023-03-22 05:33] LABS: HCT 39.3 % (39.0-53.0); HGB 13.6 gm/dL (13.0-17.5); MCH 32.9 pg (25.0-35.0); MCHC 34.6 g/dL (31.0-37.0); MCV 95.2 fL (80.0-100.0); Mean Platelet Volume 7.8; Platelet Count 189 k/uL (150-450); RBC 4.13 m/uL (4.30-5.90); RDW 12.2 % (11.5-15.5); WBC 10.5 k/uL (3.8-10.6)
[2023-03-22 05:41] LABS: Glucose,Whole Blood 165 mg/dL (70-110)
[2023-03-22 05:45] LABS: ALT 21 U/L (4-49); AST 19 U/L (17-59); African American GFR (CKD) >90 (>60 ml/min/1.73 sqM); Albumin 3.3 g/dL (3.5-5.0); Albumin/Globulin Ratio 1.1; Alkaline Phosphatase 52 U/L (38-126); Anion Gap 5 mmol/L; Blood Urea Nitrogen 23 mg/dL (9-20); Calcium 8.5 mg/dL (8.4-10.2); Carbon Dioxide 27 mmol/L (22-30); Chloride 102 mmol/L (98-107); Globulin 2.9 g/dL; Glucose 189 mg/dL (74-99); Non-African American GFR(CKD) >90 (>60 ml/min/1.73 sqM); Potassium 4.8 mmol/L (3.5-5.1); Sodium 134 mmol/L (137-145); Total Bilirubin 1.1 mg/dL (0.2-1.3); Total Protein 6.2 g/dL (6.3-8.2)
[2023-03-22] MEDS: INSULIN ASPART (NovoLOG) 100 UNIT/ML VIAL SQ SCH ×4 (05:45→20:57)
[2023-03-22] MEDS: KETOROLAC 15 MG/ML 1 ML VIAL IVP SCH ×3 (09:12→23:20)
[2023-03-22 11:48] LABS: Glucose,Whole Blood 191 mg/dL (70-110)
--- NOTE | 2023-03-22 14:51 | P.PN ---
Subjective Progress Note Date: 03/22/23 Hospital course: Patient is a 47-year-old male with a past medical history of hypertension, hyperlipidemia, and fiw-xmtzvxc-zhlqovtbn diabetes mellitus. He presented to the emergency department on 03/19/23 secondary to intractable nausea and vomiting, generalized rash, and high fevers 1 week. Patient reports this began approximately one week ago he started feeling fatigued and began noticing a red raised rash develop and quickly spread over his entire body and face. Patient's at bedside described this rash stating it looked like little tiny pimples everywhere. Patient reports he then developed some nausea, vomiting and diarrhea so he went to see his primary care doctor on Thursday where he was diagnosed with a virus and started on steroids. Patient reports he did have significant improvement with the rash but the nausea, vomiting, and diarrhea has been persistent and has been accompanied by high fevers, fatigue, chills, and diaphoresis. Patient underwent full evaluation in the emergency department. Labs completed and reviewed. CBC showing leukocytosis with WBC count of 13.2. BMP showing mild prerenal azotemia with BUN of 23. Liver profile showing elevated total bili of 1.6. Lactate elevated at 2.5 with repeat lactate after bolus of 1.1. Influenza A, influenza B, RSV, and Covid PCR were all negative patient was admitted under our services with consultation to infectious disease. Patient continued to have elevated temps as high as 103.0F. He was started on steroids with Decadron and IV antibiotics with ampicillin 100 mg every 4 hours, Rocephin 2 g every 12 hours, and vancomycin. Lumbar puncture completed concerning for meningitis with 303 total nucleated cells, 93 glucose, and 190 protein. Steroids in vancomycin discontinued. Patient remains on ampicillin and Rocephin Group A strep PCR was negative. Diphtheria, listeria, and West Nil e virus antibodies pending. Physical exam: Patient seen and fully evaluated at bedside this morning. He was resting comfortably. reports he is more sleepy today than he was yesterday. Patient definitely appeared more alert and overall feeling better yesterday. Currently he reports feeling "just tired." He currently denies having any specific complaints including headache, lightheadedness, dizziness, changes in vision or hearing, chest pain or palpitations, shortness of breath, cough or congestion, or experiencing any numbness/tingling/weakness in his extremities. Papular rash appears to have completely resolved. Patient's cheeks remains slightly flushed. He has remained afebrile for greater than 24 hours. Vital signs reviewed and stable. General: Patient appears acutely ill, flushed appearance Derm: Skin warm and dry, normal coloration for ethnicity. Cheeks flushed. Pa pular Rash has resolved. Head: Atraumatic, normocephalic and symmetric. Eyes: EOMs intact, no lid lag, and anicteric sclera Mouth: no lip lesions, mucus membranes moist. 2 small white papules oral pharynx Cardiovascular: tachycardic rate and rhythm with normal S1S2, no murmur, positive posterior tibial pulses bilaterally, and cap refill < 2 seconds. Lungs: Respirations even, regular, and unlabored on room air. Lungs CTA bilaterally, no rhonchi, no rales, no wheezing, and no accessory muscle usage. Abdominal: soft, nontender to palpation, no guarding, no appreciable organomegaly Ext: ROM intact. No gross muscle atrophy, no edema, no contractures Neuro: Speech clear, face symmetrical and CN II-XII grossly intact with no noted focal neuro deficits Psych: Alert and oriented to person, place, time, and situation. Appropriate and pleasant affect. Assessment and Plan of Care: Meningitis, likely viral Intractable nausea, vomiting, and diarrhea Leukocytosis Pyrexia Lactic acidosis, resolved CSF cultures resulting positive for critical total nucleated cells of 303, glucose of 93, and total protein of 190. -West Nile virus antibody IgG and IgM, PCR for listeria monocytogenes, and Corynebacterium diphtheria cultures pending. -Order placed for repeat CBC and CMP tomorrow morning. Continue telemetry monitoring Continue IV fluid hydration with 0.9% normal saline at 130 mL's per hour. Continue scheduled Toradol 15 mg IVP every 6 hours Continue with Tylenol 650 mg every 6 hours as needed for mild pain/discomfort. Infectious disease following and discussed plan of care with Dr. River. Hypertension Continue to monitor vital signs and continue daily medication regimen with lisinopril 20 mg nightly Hyperlipidemia Continue daily medication regimen with atorvastatin 10 mg nightly. Type II qhp-covgdhy-ldqhfimlu diabetes mellitus with hyperglycemia Hold oral hypoglycemic medications in place patient on glycemic protocol with NovoLog sliding scale to maintain tight glycemic control throughout hospitalization. Hemoglobin A1c 6.2%. Data review Morning labs reviewed. Temp 97.7F, heart rate 68, respiratory rate 16, blood pressure 123/70, and SpO2 of 98% on room air. Morning labs reviewed. CBC showing resolution of leukocytosis with WBC count of 10.5. BMP showing mild hyponatremia with sodium 134 and prerenal azotemia with BUN of 23. Glucose improving since stopping of steroids and currently 165. CODE STATUS: Full code DVT prophylaxis: Lovenox Discussed with: Patient, patient's , RN, an infectious disease physician Anticipated discharge date: Clinical course to determine Anticipated discharge place: Home Patient was seen independently by Nurse Pracitioner. This document was prepared using [employer] dictation software. Please allow for errors in registered nurse behavioral health, while rare they do occur. Donell Ford NP rendered care for this patient independently, reviewed the findings and plan as documented in the note above. I did not physically speak with or examine the patient on this date. Objective - Vital Signs Vital signs: Vital Signs Temp 97.7 F 03/22/23 07:14 Pulse 68 03/22/23 07:14 Resp 16 03/22/23 07:14 BP 123/70 03/22/23 07:14 Pulse Ox 98 03/22/23 07:14 FiO2 Intake & Output 03/21/23 03/22/23 03/22/23 18:59 06:59 18:59 Other: # Voids 1 2 - Labs CBC & Chem 7: 03/22/23 05:02 03/22/23 05:02 Labs: Abnormal Lab Results - Last 24 Hours (Table) 03/21/23 03/21/23 03/21/23 Range/Units 06:41 12:06 17:15 RBC (4.30-5.90) m/uL Sodium (137-145) mmol/L BUN (9-20) mg/dL Glucose (74-99) mg/dL POC Glucose (mg/dL) 251 H 269 H (70-110) mg/dL Hemoglobin A1c 6.2 H (<=6.0) % Total Protein (6.3-8.2) g/dL Albumin (3.5-5.0) g/dL 03/21/23 03/22/23 03/22/23 Range/Units 20:26 05:02 05:02 RBC 4.13 L (4.30-5.90) m/uL Sodium 134 L (137-145) mmol/L BUN 23 H (9-20) mg/dL Glucose 189 H (74-99) mg/dL POC Glucose (mg/dL) 248 H (70-110) mg/dL Hemoglobin A1c (<=6.0) % Total Protein 6.2 L (6.3-8.2) g/dL Albumin 3.3 L (3.5-5.0) g/dL 03/22/23 Range/Units 05:40 RBC (4.30-5.90) m/uL Sodium (137-145) mmol/L BUN (9-20) mg/dL Glucose (74-99) mg/dL POC Glucose (mg/dL) 165 H (70-110) mg/dL Hemoglobin A1c (<=6.0) % Total Protein (6.3-8.2) g/dL Albumin (3.5-5.0) g/dL Microbiology - Last 24 Hours (Table) 03/20/23 16:16 CSF Gram Stain - Preliminary Cerebral Spinal Fluid CSF Culture - Preliminary 03/20/23 16:54 Blood Culture - Preliminary Blood
--- NOTE | 2023-03-22 16:18 | P.PN ---
Subjective Progress Note Date: 03/22/23 Principal diagnosis: Meningitis Patient is a 47-year-old with a past medical history significant for diabetes mellitus hypertension hyperlipidemia presented to the ER for evaluation of headache, patient initially started with a generalized body rash that was treated with steroids by the PCP for possible viral rash he also have a nausea vomiting diarrhea and headache patient did have a LP completed it shows elevated protein and glucose, WBC was also elevated. On today's evaluation that is 03/22/2023, the patient remains to be afebrile, the patient is feeling better and denies any headache today. Denies have any nausea vomiting no chest pain or shortness of breath or cough no abdominal pain no further diarrhea. Patient did have white count of 10.5 creatinine 0.87 Objective - Vital Signs Vital signs: Vital Signs Temp 97.7 F 03/22/23 07:14 Pulse 68 03/22/23 07:14 Resp 16 03/22/23 07:14 BP 123/70 03/22/23 07:14 Pulse Ox 98 03/22/23 07:14 FiO2 Intake & Output 03/21/23 03/22/23 03/22/23 18:59 06:59 18:59 Other: # Voids 1 2 - Exam GENERAL DESCRIPTION: Middle-aged male lying in bed in no distress RESPIRATORY SYSTEM: Unlabored breathing , decreased breath sounds at bases HEART: S1 S2 regular rate and rhythm , ABDOMEN: Soft , no tenderness EXTREMITIES: No edema feet - Labs CBC & Chem 7: 03/22/23 05:02 03/22/23 05:02 Labs: Abnormal Lab Results - Last 24 Hours (Table) 03/21/23 03/21/23 03/21/23 Range/Units 06:41 17:15 20:26 RBC (4.30-5.90) m/uL Sodium (137-145) mmol/L BUN (9-20) mg/dL Glucose (74-99) mg/dL POC Glucose (mg/dL) 269 H 248 H (70-110) mg/dL Hemoglobin A1c 6.2 H (<=6.0) % Total Protein (6.3-8.2) g/dL Albumin (3.5-5.0) g/dL 03/22/23 03/22/23 03/22/23 Range/Units 05:02 05:02 05:40 RBC 4.13 L (4.30-5.90) m/uL Sodium 134 L (137-145) mmol/L BUN 23 H (9-20) mg/dL Glucose 189 H (74-99) mg/dL POC Glucose (mg/dL) 165 H (70-110) mg/dL Hemoglobin A1c (<=6.0) % Total Protein 6.2 L (6.3-8.2) g/dL Albumin 3.3 L (3.5-5.0) g/dL 03/22/23 Range/Units 11:44 RBC (4.30-5.90) m/uL Sodium (137-145) mmol/L BUN (9-20) mg/dL Glucose (74-99) mg/dL POC Glucose (mg/dL) 191 H (70-110) mg/dL Hemoglobin A1c (<=6.0) % Total Protein (6.3-8.2) g/dL Albumin (3.5-5.0) g/dL Microbiology - Last 24 Hours (Table) 03/20/23 16:16 CSF Gram Stain - Preliminary Cerebral Spinal Fluid CSF Culture - Preliminary 03/20/23 16:54 Blood Culture - Preliminary Blood Assessment and Plan (1) Meningitis Current Visit: Yes Status: Acute Code(s): G03.9 - MENINGITIS, UNSPECIFIED SNOMED Code(s): 3105997 Plan: 1patient present to hospital with sepsis in this patient with a fever elevated white count mild tachycardia did have significant headache and also is predominantly GI symptoms in this patient was on his boat the day before his symptoms started acutely suspicious for meningitis with a question of viral versus Listeria in this patient with predominant GI symptoms 2-patient did have LP and shows elevated protein and glucose and white cells mostly compatible with viral meningitis however keeping in mind mostly PMNs and moderate glucose is elevated possibility of Listeria is still there 3-We will contact the patient on ampicillin Rocephin while waiting for the CSF studies to be completed at the bedside questions were answered Dictation was produced using [employer] software. please excuse any grammatical, word or spelling errors. Time with Patient: Less than 30
[2023-03-22 17:18] LABS: Glucose,Whole Blood 242 mg/dL (70-110)
[2023-03-22] MEDS: ATORVASTATIN 10 MG TAB PO SCH (19:57)
[2023-03-22] MEDS: lisinopriL 20 MG TAB PO SCH (19:57)
[2023-03-22 20:48] LABS: Glucose,Whole Blood 234 mg/dL (70-110)
--- NOTE | 2023-03-22 21:14 | P.CNNES ---
History of Present Illness Consult date: 03/22/23 Requesting physician: Donell Ford Reason for Consult: pt has meningitis, now seeing black floaters bilateral eyes History of Present Illness: Patient is a 47-year-old male came to the hospital on 03/19/2023 at 4:34 PM for chief complaints of headache. Patient states that his symptoms started last Thursday on 03/15/2023 with rash all over the body. It was a little red macular rash over the body, that a few days later turned into purple blotches. Patient states the next day on Thursday, he started having headaches behind the left eye. On Thursday, he saw his primary physician, who did not notice any fever and felt it was not contagious and felt possibly viral syndrome. He said that he was slightly confused, slightly disoriented, as he did not remember what year it was and where he was at. On Thursday, he went to work. He was not feeling well. He started having fevers. Later that night, at midnight, he started throwing up, with diarrhea, couldn't sleep. Therefore he decided to come to the ER and arrived here on at 4:30 PM. Patient's vitals on arrival blood pressure 115/71, pulse 82, temperature 99.2, which went up to 102.7. The T-max was 103.0. Patient says that he did have transient confusion, disorientation as to what year it was or where he was at. Patient was diagnosed with meningitis, rule out listeria. Infections disease is on board. Patient currently on ceftriaxone 2 g every 12 hours and ampicillin 2 g every 4 hours. Patient had an episode today in which he developed little black dots in his vision. He called it black floaters, almost like grains of black pepper spread out in his vision. He was still able to see all over, and it involves bilateral visual garcia or over. The symptoms started at 11 AM, and resolved in about the next 2-3 hours. At present he has no similar symptoms. He denies any numbness or tingling, any slurred speech or facial droop. No stroke symptoms otherwise. This visual symptoms prompted neurological consultation. Patient does not take any aspirin. Patient underwent computed tomography scan of the head, which revealed no acute intracranial hemorrhage, mass effect or midline shift. I personally reviewed CT head, agree with the findings. Paranasal sinuses are clear. EKG shows sinus rhythm. Patient's blood counts with WBC 13.2, hemoglobin 16.0, platelets 191. Sodium 135 potassium 4.5, BUN 23, creatinine 1.19. Lactate was 2.5. Hepatic panel normal, troponin negative. Influenza screen, RSV and coronavirus PCR negative. Patient underwent spinal food examination, in which his nucleated cells were 303, out of which 36% were mononuclear and 64% polynuclear cells. CSF glucose elevated 93, CSF total protein 190/60. Group A strep PCR negative. UA showed no infection. Hemoglobin A1c 6.2. Patient denies tobacco use, alcohol. He does have diabetes since 2018, well controlled with last A1c 5.5. Also has hypertension. At present patient says that the headache comes and goes, not a constant headache, not very often. No headache at this time. Patient denies any sick contacts, no recent vaccination, no upper respiratory or viral infections. Denies any outside travel or swimming. Patient denies any tick bite, or any risk factor for HIV. Review of Systems Constitutional: Reports chills, Reports fatigue, Reports fever, Reports night sweats, Reports poor appetite, Denies chronic headaches Eyes: bilateral blurred vision (Spots in vision both eyes), denies diplopia, denies pain Ears: deny: decreased hearing, ear discharge Ears, nose, mouth and throat: Reports headache, Denies nasal congestion, Denies sinus pressure, Denies sore throat Cardiovascular: Denies chest pain, Denies shortness of breath Respiratory: Denies cough, Denies excessive sputum Gastrointestinal: Reports diarrhea (only thursday), Reports nausea, Reports vomiting, Denies abdominal pain Genitourinary: Denies incontinence, Denies urinary frequency, Denies urinary hesitancy Musculoskeletal: Denies low back pain, Denies myalgias, Denies neck pain Integumentary: Reports rash, Denies pruritus Neurological: Reports as per HPI Psychiatric: Denies anxiety, Denies depression Endocrine: Reports fatigue, Denies weight change Hematologic/Lymphatic: Denies easy bleeding, Denies easy bruising Past Medical History Past Medical History: Diabetes Mellitus, Hyperlipidemia, Hypertension Additional Past Medical History / Comment(s): 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 History of Any Multi-Drug Resistant Organisms: None Reported Additional Past Surgical History / Comment(s): VASECTOMY. WISDOM TEETH Past Anesthesia/Blood Transfusion Reactions: No Reported Reaction Past Psychological History: No Psychological Hx Reported Smoking Status: Never smoker Past Alcohol Use History: Rare Past Drug Use History: None Reported Medications and Allergies Home Medications Medication Instructions Recorded Confirmed Type Semaglutide [Ozempic] 0.5 mg SQ SA 03/07/22 03/19/23 History Simvastatin [Zocor] 20 mg PO HS 03/07/22 03/19/23 History lisinopriL [Zestril] 20 mg PO HS 03/07/22 03/19/23 History metFORMIN HCL 500 mg PO BID 03/07/22 03/19/23 History Allergies Allergy/AdvReac Type Severity Reaction Status Date / Time No Known Allergies Allergy Verified 03/19/23 22:48 Physical Examination - Vital Signs Vital Signs: Vital Signs Temp Pulse Resp BP Pulse Ox 03/22/23 13:00 71 113/69 03/22/23 07:14 97.7 F 68 16 123/70 98 03/22/23 01:34 97.8 F 61 15 132/76 97 03/21/23 18:55 98.4 F 57 L 15 135/76 97 Intake and Output 03/22/23 03/22/23 03/22/23 06:59 14:59 22:59 Intake Total 1030 Balance 1030 Intake: Intake, IV Titration 1030 Amount Ampicillin 2,000 mg In 200 Sodium Chloride 0.9% 100 ml @ 200 mls/hr IVPB Q4HR [facility] Rx#:[id number] Sodium Chloride 0.9% 1, 780 000 ml @ 130 mls/hr IV . Q7H42M [facility] Rx#:[id number] cefTRIAXone 2 gm In 50 Sodium Chloride 0.9% 50 ml @ 100 mls/hr IVPB Q12H [facility] Rx#:[id number] Other: # Voids 2 Patient is a middle aged male, who appears to be somewhat slow mentation, in no acute distress. Patient is alert awake oriented to time place and person. Patient knows it is February 2023 and that he is in [facility] in [place] and name of the current president. Speech and language functions are normal. Patient can name and repeat very well. No aphasia or dysarthria. Attention, concentration and fund of knowledge is adequate. On cranial nerve examination, pupils are equal, round and reacting to light, visual garcia are full on confrontation, with no neglect on double simultaneous stimulation. Extraocular muscles are intact with no nystagmus. Face is symmetric, tongue protrudes to the midline. Palatal elevation and sensation normal, hearing and shoulder shrug normal, facial sensation normal. On muscle strength testing, there is no pronator drift and the strength is normal in arms and legs distally and proximally. Deep tendon reflexes are symmetric 1+ at the biceps, 1+ brachioradialis, 1 at the knees, and ankles and plantars downgoing bilaterally. Sensory to touch is equal with no neglect on double simultaneous stimulation. Cerebellar function showed no ataxia for [id number] testing. No dysdiadochokinesia. No ataxia for [id number] testing on either side. Tone and bulk of muscles normal. Gait deferred.. On general examination, there is no carotid bruit or murmur, S1-S2 audible. Chest is clear on consultation. Abdomen is soft nontender. No organomegaly, bowel sounds present. Peripheral pulses are present. No edema. Neck appears supple. Results - Laboratory Findings CBC and BMP: 03/22/23 05:02 03/22/23 05:02 Abnormal Lab Findings: Abnormal Labs 03/19/23 03/19/23 03/19/23 20:05 20:05 20:05 WBC 13.2 H RBC Neutrophils # 9.8 H Sodium 135 L Chloride 95 L Carbon Dioxide BUN 23 H Glucose 203 H POC Glucose (mg/dL) Hemoglobin A1c Plasma Lactic Acid Valdo 2.5 H* Total Bilirubin 1.6 H Total Protein 8.4 H Albumin Ur Specific [place] Urine Protein Urine Glucose (UA) Urine Ketones Urine Mucus CSF Tot Nucleated Cells CSF Glucose CSF Total Protein 03/20/23 03/20/23 03/20/23 00:08 06:30 06:30 WBC 13.5 H RBC Neutrophils # 10.8 H Sodium Chloride Carbon Dioxide BUN 22 H Glucose 161 H POC Glucose (mg/dL) 171 H Hemoglobin A1c Plasma Lactic Acid Valdo Total Bilirubin 1.4 H Total Protein Albumin Ur Specific [place] Urine Protein Urine Glucose (UA) Urine Ketones Urine Mucus CSF Tot Nucleated Cells CSF Glucose CSF Total Protein 03/20/23 03/20/23 03/20/23 07:55 12:42 16:16 WBC RBC Neutrophils # Sodium Chloride Carbon Dioxide BUN Glucose POC Glucose (mg/dL) 161 H 134 H Hemoglobin A1c Plasma Lactic Acid Valdo Total Bilirubin Total Protein Albumin Ur Specific [place] Urine Protein Urine Glucose (UA) Urine Ketones Urine Mucus CSF Tot Nucleated Cells 303 H* CSF Glucose 93 H CSF Total Protein 190 H 03/20/23 03/20/23 03/20/23 17:08 20:22 21:00 WBC RBC Neutrophils # Sodium Chloride Carbon Dioxide BUN Glucose POC Glucose (mg/dL) 171 H 188 H Hemoglobin A1c Plasma Lactic Acid Valdo Total Bilirubin Total Protein Albumin Ur Specific [place] 1.039 H Urine Protein 1+ H Urine Glucose (UA) 4+ H Urine Ketones 3+ H Urine Mucus Rare H CSF Tot Nucleated Cells CSF Glucose CSF Total Protein 03/21/23 03/21/23 03/21/23 06:30 06:41 06:41 WBC 11.1 H RBC Neutrophils # Sodium Chloride Carbon Dioxide BUN Glucose POC Glucose (mg/dL) 196 H Hemoglobin A1c 6.2 H Plasma Lactic Acid Valdo Total Bilirubin Total Protein Albumin Ur Specific [place] Urine Protein Urine Glucose (UA) Urine Ketones Urine Mucus CSF Tot Nucleated Cells CSF Glucose CSF Total Protein 03/21/23 03/21/23 03/21/23 06:41 12:06 17:15 WBC RBC Neutrophils # Sodium Chloride Carbon Dioxide 21 L BUN 24 H Glucose 223 H POC Glucose (mg/dL) 251 H 269 H Hemoglobin A1c Plasma Lactic Acid Valdo Total Bilirubin Total Protein Albumin Ur Specific [place] Urine Protein Urine Glucose (UA) Urine Ketones Urine Mucus CSF Tot Nucleated Cells CSF Glucose CSF Total Protein 03/21/23 03/22/23 03/22/23 20:26 05:02 05:02 WBC RBC 4.13 L Neutrophils # Sodium 134 L Chloride Carbon Dioxide BUN 23 H Glucose 189 H POC Glucose (mg/dL) 248 H Hemoglobin A1c Plasma Lactic Acid Valdo Total Bilirubin Total Protein 6.2 L Albumin 3.3 L Ur Specific [place] Urine Protein Urine Glucose (UA) Urine Ketones Urine Mucus CSF Tot Nucleated Cells CSF Glucose CSF Total Protein 03/22/23 03/22/23 05:40 11:44 WBC RBC Neutrophils # Sodium Chloride Carbon Dioxide BUN Glucose POC Glucose (mg/dL) 165 H 191 H Hemoglobin A1c Plasma Lactic Acid Valdo Total Bilirubin Total Protein Albumin Ur Specific [place] Urine Protein Urine Glucose (UA) Urine Ketones Urine Mucus CSF Tot Nucleated Cells CSF Glucose CSF Total Protein Assessment and Plan Assessment: * Possible viral meningitis versus meningoencephalitis from listeria. Rule out West Nile virus. * Transient visual disturbance with seeing black dots, like grains of the black pepper spelled out in visual field. Symptoms resolved in 2-3 hours. Exact cause remains uncertain. It was not monocular, as it involved both eyes, involving all visual garcia. Uncertain if vascular or ictal or related to meningitis. * Diabetes * Hypertension Plan: * 2-D echo with bubble study evaluate for any embolic source. * EEG to rule out any epileptiform activity. * Await viral cultures from the CSF. * Await West Nile virus, Listeria monocytogenes PCR. * Observe for any neurological symptoms. Patient instructed to report to the nursing staff for any recurrence of visual or any neurological symptoms. * Dr. Teddy Kim Will resume neurology service from the morning. Thank you for the consult.
[2023-03-23] MEDS: AMPICILLIN 2,000 MG in SODIUM CHLORIDE 0.9% 100 ML IVPB SCH ×5 (04:16→21:30)
[2023-03-23] MEDS: KETOROLAC 15 MG/ML 1 ML VIAL IVP SCH ×2 (05:36→13:14)
[2023-03-23 05:42] LABS: Glucose,Whole Blood 159 mg/dL (70-110)
[2023-03-23] MEDS: INSULIN ASPART (NovoLOG) 100 UNIT/ML VIAL SQ SCH ×4 (05:45→21:44)
[2023-03-23] MEDS: ENOXAPARIN 40 MG/0.4 ML SYRINGE SQ SCH (08:27)
[2023-03-23 12:55] LABS: Glucose,Whole Blood 189 mg/dL (70-110)
[2023-03-23] MEDS ORDERED: KETOROLAC 15 MG/ML 1 ML VIAL IVP PRN (15:30)
--- NOTE | 2023-03-23 15:41 | P.PN ---
Subjective Progress Note Date: 03/23/23 Hospital course: Patient is a 47-year-old male with a past medical history of hypertension, hyperlipidemia, and [id number] diabetes mellitus. He presented to the emergency department on 03/19/23 secondary to intractable nausea and vomiting, generalized rash, and high fevers 1 week. Patient underwent full evaluation in the emergency department. Labs completed and reviewed. CBC showing leukocytosis with WBC count of 13.2. BMP showing mild prerenal azotemia with BUN of 23. Liver profile showing elevated total bili of 1.6. Lactate elevated at 2.5 with repeat lactate after bolus of 1.1. Influenza A, influenza B, RSV, and Covid PCR were all negative patient was admitted under our services with consultation to infectious disease. Patient continued to have elevated temps as high as 103.0F. He was started on steroids with Decadron and IV a ntibiotics with ampicillin 100 mg every 4 hours, Rocephin 2 g every 12 hours, and vancomycin. Lumbar puncture completed concerning for meningitis with 303 total nucleated cells, 93 glucose, and 190 protein. Steroids in vancomycin discontinued. Patient remains on ampicillin and Rocephin Group A strep PCR was negative. Diphtheria, listeria, and West Nile virus antibodies pending. Late afternoon on 03/22/23 patient had an isolated episode in which he was seeing black spots/floaters out of all garcia in bilateral eyes. He denied headache at this time and vital signs were unremarkable with blood pressure 113/69. This was discussed in detail with infectious disease and Consult was placed to ne urology. Visual floaters lasting approximately 3 hours prior to spontaneously residing. Physical exam: Patient seen and fully evaluated at bedside this morning. He does appear to feel somewhat better today. Patient reports he still kind of feels tired but otherwise continues to report full resolution of previous reported visual floaters. Patient reports they lasted 3 hours and have not came back. Currently he reports mild headache and just feeling tired and denies any other complaints. Patient has had full resolution of previous noted papular rash. Continues to have slight flushing of cheeks but significantly improved. Patient tolerating oral intake well. Vital signs reviewed and stable. General: Patient appears acutely ill, flushed appearance Derm: Skin warm and dry, normal coloration for ethnicity. Cheeks flushed. Papular Rash has resolved. Head: Atraumatic, normocephalic and symmetric. Eyes: EOMs intact, no lid lag, and anicteric sclera Mouth: no lip lesions, mucus membranes moist. 2 small white papules oral pharynx Cardiovascular: tachycardic rate and rhythm with normal S1S2, no murmur, positive posterior tibial pulses bilaterally, and cap refill < 2 seconds. Lungs: Respirations even, regular, and unlabored on room air. Lungs CTA bilaterally, no rhonchi, no rales, no wheezing, and no accessory muscle usage. Abdominal: soft, nontender to palpation, no guarding, no appreciable organomegaly Ext: ROM intact. No gross muscle atrophy, no edema, no contractures Neuro: Speech clear, face symmetrical and CN II-XII grossly intact with no noted focal neuro deficits Psych: Alert and oriented to person, place, time, and situation. Appropriate and pleasant affect. Assessment and Plan of Care: Meningitis, likely viral however it is unclear at this time CSF sample resulting positive for critical total nucleated cells of 303, gluco se of 93, and total protein of 190. CSF Gram stain and CSF culture pending West Nile virus antibody IgG and IgM, PCR for listeria monocytogenes, and Corynebacterium diphtheria cultures pending. Blood culture and stool culture pending -Order placed for repeat CBC and CMP tomorrow morning. Continue telemetry monitoring Patient no longer having any nausea or vomiting or diarrhea and tolerating oral intake well this morning. Discontinued IV fluids yesterday evening and patient seems to be tolerating well. Late afternoon on 03/22/23 patient had an isolated episode in which he was seeing black spots/floaters out of all garcia in bilateral eyes. He denied headache at this time and vital signs were unremarkable with blood pressure 113/69. This was discussed in detail with infectious disease and Consult was placed to neurology. Visual floaters lasting approximately 3 hours prior to spontaneously residing. Neurology following, recommending patient undergo EEG Continue Toradol 15 mg IVP every 6 hours as needed for pain and/or fever greater than 100.5F. Continue with Tylenol 650 mg every 6 hours as needed for mild pain/discomfort. Infectious disease following and discussed plan of care with Dr. River. Systemic Papular rash. Resolved Intractable nausea, vomiting, and diarrhea. Resolved Leukocytosis. Resolved Pyrexia. Resolved Lactic acidosis. Resolved Hypertension Continue to monitor vital signs and continue daily medication regimen with lisinopril 20 mg nightly Hyperlipidemia Continue daily medication regimen with atorvastatin 10 mg nightly. Type II [id number] diabetes mellitus with hyperglycemia Hold oral hypoglycemic medications in place patient on glycemic protocol with NovoLog sliding scale to maintain tight glycemic control throughout hospitalization. Hemoglobin A1c 6.2%. Data review Vital signs reviewed. Temp 98.2F, blood pressure 123/76, heart rate 63, respiratory rate 16, SpO2 of 96% on room air. CODE STATUS: Full code DVT prophylaxis: Lovenox Discussed with: Patient, patient's , RN, an infectious disease physician Anticipated discharge date: Clinical course to determine Anticipated discharge place: Home Patient was seen independently by Nurse Pracitioner. This document was prepared using [employer] dictation software. Please allow for errors in manager wind, while rare they do occur. Donell Ford NP rendered care for this patient independently, reviewed the findings and plan as documented in the note above. I did not physically speak with or examine the patient on this date. Objective - Vital Signs Vital signs: Vital Signs Temp 98.2 F 03/23/23 08:25 Pulse 63 03/23/23 08:25 Resp 16 03/23/23 08:25 BP 123/76 03/23/23 08:25 Pulse Ox 96 03/23/23 08:25 FiO2 Intake & Output 03/22/23 03/23/23 03/23/23 18:59 06:59 18:59 Intake Total 1148 Output Total 0 Balance 1148 0 Intake: Intake, IV Titration 1030 Amount Ampicillin 2,000 mg In 200 Sodium Chloride 0.9% 100 ml @ 200 mls/hr IVPB Q4HR [facility] Rx#:[id number] Sodium Chloride 0.9% 1, 780 000 ml @ 130 mls/hr IV . Q7H42M [facility] Rx#:[id number] cefTRIAXone 2 gm In 50 Sodium Chloride 0.9% 50 ml @ 100 mls/hr IVPB Q12H [facility] Rx#:[id number] Oral 118 Output: Emesis 0 - Labs CBC & Chem 7: 03/22/23 05:02 03/22/23 05:02 Labs: Abnormal Lab Results - Last 24 Hours (Table) 03/22/23 03/22/23 03/22/23 Range/Units 11:44 17:17 20:46 POC Glucose (mg/dL) 191 H 242 H 234 H (70-110) mg/dL 03/23/23 Range/Units 05:40 POC Glucose (mg/dL) 159 H (70-110) mg/dL Microbiology - Last 24 Hours (Table) 03/20/23 16:16 CSF Gram Stain - Preliminary Cerebral Spinal Fluid CSF Culture - Preliminary 03/20/23 16:54 Blood Culture - Preliminary Blood 03/20/23 21:00 Stool Culture - Preliminary Stool
--- NOTE | 2023-03-23 16:51 | P.PN ---
Subjective Progress Note Date: 03/23/23 Principal diagnosis: Meningitis Patient is a 47-year-old with a past medical history significant for diabetes mellitus hypertension hyperlipidemia presented to the ER for evaluation of headache, patient initially started with a generalized body rash that was treated with steroids by the PCP for possible viral rash he also have a nausea vomiting diarrhea and headache patient did have a LP completed it shows elevated protein and glucose, WBC was also elevated. On today's evaluation that is 03/23/2023, the patient denies any fever or any chills, the patient denies any headache today, patient did have some black floater for a short duration yesterday but no neurological symptoms, the patient denies any nausea vomiting no chest pain or shortness of breath or cough no abdominal pain no further diarrhea. Patient did have white count of 10.5 creatinine 0.87 as of yesterday no blood draw today CSF PCR still pending Objective - Vital Signs Vital signs: Vital Signs Temp 98.2 F 03/23/23 08:25 Pulse 63 03/23/23 08:25 Resp 16 03/23/23 08:25 BP 123/76 03/23/23 08:25 Pulse Ox 96 03/23/23 08:25 FiO2 Intake & Output 03/22/23 03/23/23 03/23/23 18:59 06:59 18:59 Intake Total 1148 Output Total 0 Balance 1148 0 Intake: Intake, IV Titration 1030 Amount Ampicillin 2,000 mg In 200 Sodium Chloride 0.9% 100 ml @ 200 mls/hr IVPB Q4HR [facility] Rx#:[id number] Sodium Chloride 0.9% 1, 780 000 ml @ 130 mls/hr IV . Q7H42M [facility] Rx#:[id number] cefTRIAXone 2 gm In 50 Sodium Chloride 0.9% 50 ml @ 100 mls/hr IVPB Q12H [facility] Rx#:[id number] Oral 118 Output: Emesis 0 - Exam GENERAL DESCRIPTION: Middle-aged male lying in bed in no distress RESPIRATORY SYSTEM: Unlabored breathing , decreased breath sounds at bases HEART: S1 S2 regular rate and rhythm , ABDOMEN: Soft , no tenderness EXTREMITIES: No edema feet - Labs CBC & Chem 7: 03/22/23 05:02 03/22/23 05:02 Labs: Abnormal Lab Results - Last 24 Hours (Table) 03/22/23 03/22/23 03/22/23 Range/Units 11:44 17:17 20:46 POC Glucose (mg/dL) 191 H 242 H 234 H (70-110) mg/dL 03/23/23 Range/Units 05:40 POC Glucose (mg/dL) 159 H (70-110) mg/dL Microbiology - Last 24 Hours (Table) 03/20/23 16:16 CSF Gram Stain - Preliminary Cerebral Spinal Fluid CSF Culture - Preliminary 03/20/23 16:54 Blood Culture - Preliminary Blood 03/20/23 21:00 Stool Culture - Preliminary Stool Assessment and Plan (1) Meningitis Current Visit: Yes Status: Acute Code(s): G03.9 - MENINGITIS, UNSPECIFIED SNOMED Code(s): 5342077 Plan: 1patient present to hospital with sepsis in this patient with a fever elevated white count mild tachycardia did have significant headache and also is predominantly GI symptoms in this patient was on his boat the day before his symptoms started acutely suspicious for meningitis with a question of viral versus Listeria in this patient with predominant GI symptoms 2-patient did have LP and shows elevated protein and glucose and white cells mostly compatible with viral meningitis however keeping in mind mostly PMNs and moderate protein elevation possibility of Listeria is still there 3-We will contact the patient on ampicillin however discontinue Rocephin while waiting for the CSF studies to be completed at the bedside questions were answered Dictation was produced using [employer] dictation software. please excuse any grammatical, word or spelling errors. Time with Patient: Less than 30
[2023-03-23 17:21] LABS: Glucose,Whole Blood 236 mg/dL (70-110)
[2023-03-23 20:17] LABS: Glucose,Whole Blood 234 mg/dL (70-110)
--- NOTE | 2023-03-23 20:34 | P.PN ---
Subjective Progress Note Date: 03/23/23 I'm seeing the patient for the first time during this admission. Patient is accompanied with his was at bedside. Please refer to Dr. Damon's note for further details. It seems the patient had a rash on 03/15/2023 and it seems that he went to his primary care according to the and the was told he had a viral infection. Lung later in the week the patient was asleep the more than baseline had nausea vomiting fever. Patient denies any recent travel or sick contacts. He had some neck pain and headache which has resolved. Denies of any visual disturbance, focal weakness numbness difficulty getting his words out. His fever has resolved and his headache and neck pain has resolved. No further vomiting. He had a CSF study nucleated cells of 303. His proteins was 193 and the glucose is 93. Objective - Vital Signs Vital signs: Vital Signs Temp 98.4 F 03/23/23 13:30 Pulse 63 03/23/23 13:30 Resp 16 03/23/23 13:30 BP 128/74 03/23/23 13:30 Pulse Ox 94 L 03/23/23 13:30 FiO2 Intake & Output 03/23/23 03/23/23 03/24/23 06:59 18:59 06:59 Output Total 0 Balance 0 Output: Emesis 0 Other: # Voids 5 - Exam General the patient is lying in bed and is not in acute distress. Neuro- Patient is awake alert oriented to self place and time. His following simple commands. No aphasia and no neglect. Pupils are round equal and reactive to light. The pupils are round 4 mm bilaterally. Visual garcia are full to accommodation. Extra ocular movements intact no nystagmus. No facial weakness. No dysarthria. Motor is the strength is 5 out of 5 throughout. Normal tone and bulk. Sensation is normal to touch throughout Cerebellar somewhat slow with finger to nose over the right compared to the left. There is no ataxia or dysmetria - Labs CBC & Chem 7: 03/22/23 05:02 03/22/23 05:02 Labs: Abnormal Lab Results - Last 24 Hours (Table) 03/22/23 03/23/23 03/23/23 Range/Units 20:46 05:40 12:54 POC Glucose (mg/dL) 234 H 159 H 189 H (70-110) mg/dL 03/23/23 Range/Units 17:19 POC Glucose (mg/dL) 236 H (70-110) mg/dL Microbiology - Last 24 Hours (Table) 03/20/23 16:16 CSF Gram Stain - Preliminary Cerebral Spinal Fluid CSF Culture - Preliminary 03/20/23 16:54 Blood Culture - Preliminary Blood 03/20/23 21:00 Stool Culture - Preliminary Stool Assessment and Plan Assessment: This is a 47-year-old gentleman who since March 15 2023 had a rash and later in the week he was more sleepy than usual, had fever, some headache nausea vomiting. CSF study shows nuclear cells of 303 with elevated protein and mild elevated glucose. His fever was as high as 103 in our facility which has resolved. Also had Leukocytosis with neurotrophilic. * Meningoencephalitis unknown exact cause. Examination he was also slow to perform finger to nose over the right compared to the left. His fevers and Leukocytosis has resolved. * Transient visual disturbance with seeing black dots, like grains of the black pepper spelled out in visual field. Symptoms resolved in 2-3 hours. Exact cause remains uncertain. It was not monocular, as it involved both eyes, involving all visual garcia. Uncertain if vascular or ictal or related to meningitis. * Diabetes * Hypertension Plan: * I ordered MRI of the brain with and without especially on examination he was very slow performing finger to nose over the right. * Ordered ESR and CRP. * Routine EEG study preliminary report is a normal * 2-D echo was ordered and is pending * Patient is currently on ampicillin per ID team since they're concerned that his symptoms is likely viral and concern is Listeria. Consider use of antiviral such as Acylclovir and Ceftriaxone. * Influenza A/B, SARS COV-2, Group A strep and RSV pCR are not detected. * Await viral cultures from the CSF. * Await West Nile virus, Listeria monocytogenes PCR. * Will defer the rest of medical management to the primary team. The plan is discussed with patient, his who is at bedside and primary attending. Will continue to follow. Time with Patient: Less than 30
[2023-03-23] MEDS: lisinopriL 20 MG TAB PO SCH (21:44)
[2023-03-23] MEDS: ATORVASTATIN 10 MG TAB PO SCH (21:44)
[2023-03-24] MEDS: AMPICILLIN 2,000 MG in SODIUM CHLORIDE 0.9% 100 ML IVPB SCH ×6 (00:50→20:47)
[2023-03-24 05:38] LABS: Glucose,Whole Blood 173 mg/dL (70-110)
[2023-03-24] MEDS: INSULIN ASPART (NovoLOG) 100 UNIT/ML VIAL SQ SCH ×4 (06:23→20:47)
[2023-03-24 06:30] LABS: ALT 31 U/L (4-49); AST 28 U/L (17-59); African American GFR (CKD) >90 (>60 ml/min/1.73 sqM); Albumin 3.2 g/dL (3.5-5.0); Alkaline Phosphatase 51 U/L (38-126); Anion Gap 3 mmol/L; Blood Urea Nitrogen 15 mg/dL (9-20); C Reactive Protein <0.5 mg/dL (<1.0); Calcium 8.8 mg/dL (8.4-10.2); Carbon Dioxide 31 mmol/L (22-30); Chloride 100 mmol/L (98-107); Globulin 3.1 g/dL; Glucose 163 mg/dL (74-99); Non-African American GFR(CKD) >90 (>60 ml/min/1.73 sqM); Potassium 4.3 mmol/L (3.5-5.1); Sodium 134 mmol/L (137-145); Total Bilirubin 0.7 mg/dL (0.2-1.3); Total Protein 6.3 g/dL (6.3-8.2)
[2023-03-24 06:36] LABS: HCT 40.7 % (39.0-53.0); MCH 32.3 pg (25.0-35.0); MCHC 34.4 g/dL (31.0-37.0); MCV 93.9 fL (80.0-100.0); Mean Platelet Volume 7.7; Platelet Count 225 k/uL (150-450); RBC 4.33 m/uL (4.30-5.90); RDW 12.4 % (11.5-15.5); WBC 5.9 k/uL (3.8-10.6)
--- NOTE | 2023-03-24 07:18 | CA ---
Transthoracic Echo Report Name: Eduard Ruiz Age: 47 Gender: M : 1975 Exam Date: 03/23/2023 11:01 Exam Location: [facility] Ht (in): 72 Wt (lb): 240 Ordering Physician: Donell Ford Attending/Referring Phys: Compensation Adjuster Sherrell Mejia RDCS Procedure CPT: Indications: Evaluate structure and function Cardiac Hx: Technical Quality: Good Contrast 1: Total Dose (mL): Contrast 2: Total Dose (mL): MEASUREMENTS (Male / Female) Normal Values 2D ECHO LV Diastolic Diameter PLAX 5.0 cm 4.2 - 5.9 / 3.9 - 5.3 cm LV Systolic Diameter PLAX 3.2 cm IVS Diastolic Thickness 1.4 cm 0.6 - 1.0 / 0.6 - 0.9 cm LVPW Diastolic Thickness 1.6 cm 0.6 - 1.0 / 0.6 - 0.9 cm LV Relative Wall Thickness 0.6 RV Internal Dim ED PLAX 3.7 cm LA Systolic Diameter LX 3.4 cm 3.0 - 4.0 / 2.7 - 3.8 cm LV Diastolic Volume MOD 4C 102.1 cm??? LV Systolic Volume MOD 4C 53.9 cm??? LV Ejection Fraction MOD 4C 47.2 % LV Cardiac Index MOD 4C 1293.9 cm???/min???m??? LV Diastolic Length 4C 10.3 cm LV Systolic Length 4C 8.7 cm LV Diastolic Volume MOD 2C 127.7 cm??? LV Systolic Volume MOD 2C 65.0 cm??? LV Ejection Fraction MOD 2C 49.1 % LV Cardiac Index MOD 2C 1684.6 cm???/min???m??? LV Diastolic Length 2C 9.3 cm LV Systolic Length 2C 7.9 cm LA Volume 70.4 cm??? 18 - 58 / 22 - 52 cm??? M-MODE Aortic Root Diameter MM 3.8 cm MV E Point Septal Separation 0.4 cm AV Cusp Separation MM 2.4 cm DOPPLER AV Peak Velocity 135.3 cm/s AV Peak Gradient 7.3 mmHg MV Area PHT 4.3 cm??? Mitral E Point Velocity 90.9 cm/s Mitral A Point Velocity 90.9 cm/s Mitral E to A Ratio 1.0 MV Deceleration Time 175.5 ms MV E' Velocity 6.9 cm/s Mitral E to MV E' Ratio 13.2 FINDINGS Left Ventricle Left ventricular ejection fraction is estimated at 50-55 %. Left ventricular cavity size normal. Moderately increased septal wall thickness. Right Ventricle Mild right ventricular dilatation. Unable to estimate the right ventricular systolic pressure. Right Atrium Normal right atrial size. Left Atrium Moderately increased left atrial volume. Mildly increased left atrial area. Mitral Valve Structurally normal mitral valve. No mitral stenosis, regurgitation or prolapse. Aortic Valve Trileaflet aortic valve. No aortic stenosis. No aortic regurgitation. Tricuspid Valve Structurally normal tricuspid valve. No tricuspid regurgitation. Pulmonic Valve No pulmonic regurgitation. Pericardium No pericardial effusion. Aorta Mild aortic dilatation at the level of the sinotubular junction 38 mm CONCLUSIONS Normal LV systolic function. The ejection fraction is 50-55%. Moderate concentric LVH Mildly dilated right ventricle within normal function No significant valvular pathology identified No evidence of pericardial effusion Previewed by: Dr. Ej Rae MD (Electronically Signed) Final Date: 24 March 2023 07:17
[2023-03-24] MEDS: ENOXAPARIN 40 MG/0.4 ML SYRINGE SQ SCH (07:57)
[2023-03-24] MEDS ORDERED: ACYCLOVIR 400 MG/10 ML CUP PO SCH (09:00)
[2023-03-24 09:12] LABS: Erythrocyte Sedimentation Rate 34 mm/hr (0-15)
[2023-03-24] MEDS ORDERED: ACYCLOVIR SODIUM 900 MG in SODIUM CHLORIDE 0.9% 250 ML IVPB SCH (10:30)
[2023-03-24 12:30] LABS: Glucose,Whole Blood 181 mg/dL (70-110)
--- NOTE | 2023-03-24 14:00 | P.PN ---
Subjective Progress Note Date: 03/24/23 Hospital course: Patient is a 47-year-old male with a past medical history of hypertension, hyperlipidemia, and sro-[id number] diabetes mellitus. He presented to the emergency department on 03/19/23 secondary to intractable nausea and vomiting, generalized rash, and high fevers 1 week. Patient underwent full evaluation in the emergency department. Labs completed and reviewed. CBC showing leukocytosis with WBC count of 13.2. BMP showing mild prerenal azotemia with BUN of 23. Liver profile showing elevated total bili of 1.6. Lactate elevated at 2.5 with repeat lactate after bolus of 1.1. Influenza A, influenza B, RSV, and Covid PCR were all negative patient was admitted under our services with consultation to infectious disease. Patient continued to have elevated temps as high as 103.0F. He was started on steroids with Decadron and IV a ntibiotics with ampicillin 100 mg every 4 hours, Rocephin 2 g every 12 hours, and vancomycin. Lumbar puncture completed concerning for meningitis with 303 total nucleated cells, 93 glucose, and 190 protein. Steroids in vancomycin discontinued. Patient remains on ampicillin and Rocephin Group A strep PCR was negative. Diphtheria, listeria, and West Nile virus antibodies pending. Late afternoon on 03/22/23 patient had an isolated episode in which he was seeing black spots/floaters out of all garcia in bilateral eyes. He denied headache at this time and vital signs were unremarkable with blood pressure 113/69. This was discussed in detail with infectious disease and Consult was placed to ne urology. Visual floaters lasting approximately 3 hours prior to spontaneously residing. Physical exam: Patient seen and fully evaluated at bedside this morning. He does appear to feel somewhat better today. Patient reports he still kind of feels tired but otherwise continues to report full resolution of previous reported visual floaters. Patient reports they lasted 3 hours and have not came back. Currently he reports mild headache and just feeling tired and denies any other complaints. Patient has had full resolution of previous noted papular rash. Continues to have slight flushing of cheeks but significantly improved. Patient tolerating oral intake well. Vital signs reviewed and stable. General: Patient appears acutely ill, flushed appearance Derm: Skin warm and dry, normal coloration for ethnicity. Cheeks flushed. Papular Rash has resolved. Head: Atraumatic, normocephalic and symmetric. Eyes: EOMs intact, no lid lag, and anicteric sclera Mouth: no lip lesions, mucus membranes moist. 2 small white papules oral pharynx Cardiovascular: tachycardic rate and rhythm with normal S1S2, no murmur, positive posterior tibial pulses bilaterally, and cap refill < 2 seconds. Lungs: Respirations even, regular, and unlabored on room air. Lungs CTA bilaterally, no rhonchi, no rales, no wheezing, and no accessory muscle usage. Abdominal: soft, nontender to palpation, no guarding, no appreciable organomegaly Ext: ROM intact. No gross muscle atrophy, no edema, no contractures Neuro: Speech clear, face symmetrical and CN II-XII grossly intact with no noted focal neuro deficits Psych: Alert and oriented to person, place, time, and situation. Appropriate and pleasant affect. Assessment and Plan of Care: Meningitis, likely viral however it is unclear at this time CSF sample resulting positive for critical total nucleated cells of 303, gluco se of 93, and total protein of 190. CSF viral PCR: Comprehensive virus detection with CSF negative, showing no viruses detected including HSV, CMV, abdominal virus, and enterovirus. CSF Gram stain and CSF culture pending West Nile virus antibody IgG and IgM, PCR for listeria monocytogenes, and Co rynebacterium diphtheria cultures pending. Blood culture showing no growth to date. Stool culture negative. Infectious disease following and discussed plan of care with Dr. River recommending continuation of ampicillin 2000 mg every 4 hours. Transient episode of visual floaters lasting approximately 3 hours prior to resolving Headache Abnormal neurological findings on exam Neurology following, recommending patient undergo EEG and MRI brain Continue neuro checks every 4 hours. Systemic Papular rash. Resolved Intractable nausea, vomiting, and diarrhea. Resolved Leukocytosis. Resolved Pyrexia. Resolved Lactic acidosis. Resolved Hypertension Continue to monitor vital signs and continue daily medication regimen with lisinopril 20 mg nightly Hyperlipidemia Continue daily medication regimen with atorvastatin 10 mg nightly. 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 Hemoglobin A1c 6.2%. Data review Vital signs reviewed. Blood pressure 120/76, heart rate 71, respiratory rate 16, temp 98.0F, and SpO2 of 95% on room air. Morning labs reviewed. CBC unremarkable. ESR remains elevated at 34. BMP showing hyponatremia with sodium 134 and hypercarbia with bicarb of 31. CRP less than 0.5. CODE STATUS: Full code DVT prophylaxis: Lovenox Discussed with: Patient, patient's , RN, neurologist and infectious disease physician Anticipated discharge date: Clinical course to determine Anticipated discharge place: Home Patient was seen independently by Nurse Pracitioner. This document was prepared using [employer] dictation software. Please allow for errors in adult manager, while rare they do occur. Donell Ford NP rendered care for this patient independently, reviewed the findings and plan as documented in the note above. I did not physically speak with or examine the patient on this date. Objective - Vital Signs Vital signs: Vital Signs Temp 98 F 03/24/23 08:00 Pulse 71 03/24/23 08:00 Resp 16 03/24/23 08:00 BP 120/76 03/24/23 08:00 Pulse Ox 95 03/24/23 08:00 FiO2 Intake & Output 03/23/23 03/24/23 03/24/23 18:59 06:59 18:59 Other: Voiding Method Toilet # Voids 5 2 - Labs CBC & Chem 7: 03/24/23 05:45 03/24/23 05:45 Labs: Abnormal Lab Results - Last 24 Hours (Table) 03/23/23 03/23/23 03/23/23 Range/Units 12:54 17:19 20:16 Sodium (137-145) mmol/L Carbon Dioxide (22-30) mmol/L Glucose (74-99) mg/dL POC Glucose (mg/dL) 189 H 236 H 234 H (70-110) mg/dL Albumin (3.5-5.0) g/dL 03/24/23 03/24/23 Range/Units 05:37 05:45 Sodium 134 L (137-145) mmol/L Carbon Dioxide 31 H (22-30) mmol/L Glucose 163 H (74-99) mg/dL POC Glucose (mg/dL) 173 H (70-110) mg/dL Albumin 3.2 L (3.5-5.0) g/dL Microbiology - Last 24 Hours (Table) 03/20/23 16:16 CSF Gram Stain - Preliminary Cerebral Spinal Fluid CSF Culture - Preliminary 03/20/23 16:54 Blood Culture - Preliminary Blood 03/20/23 21:00 Stool Culture - Final Stool
[2023-03-24 14:02] VITALS: BMI 32.5
--- NOTE | 2023-03-24 16:29 | P.PN ---
Subjective Progress Note Date: 03/24/23 Principal diagnosis: Meningitis Patient is a 47-year-old with a past medical history significant for diabetes mellitus hypertension hyperlipidemia presented to the ER for evaluation of headache, patient initially started with a generalized body rash that was treated with steroids by the PCP for possible viral rash he also have a nausea vomiting diarrhea and headache patient did have a LP completed it shows elevated protein and glucose, WBC was also elevated. On today's evaluation that is 03/24/2023, the patient remains to be afebrile, the patient denies any headache and did not have any further neurological symptoms patient denies having any chest pain shortness of breath or cough no nausea vomiting no abdominal pain in the pre-diarrhea has resolved overall feeling better Patient did have white count of 5.9, creatinine 0.85 Objective - Vital Signs Vital signs: Vital Signs Temp 98 F 03/24/23 08:00 Pulse 71 03/24/23 08:00 Resp 16 03/24/23 08:00 BP 120/76 03/24/23 08:00 Pulse Ox 95 03/24/23 08:00 FiO2 Intake & Output 03/23/23 03/24/23 03/24/23 18:59 06:59 18:59 Other: Voiding Method Toilet Toilet # Voids 5 2 - Exam GENERAL DESCRIPTION: Middle-aged male lying in bed in no distress RESPIRATORY SYSTEM: Unlabored breathing , decreased breath sounds at bases HEART: S1 S2 regular rate and rhythm , ABDOMEN: Soft , no tenderness EXTREMITIES: No edema feet - Labs CBC & Chem 7: 03/24/23 05:45 03/24/23 05:45 Labs: Abnormal Lab Results - Last 24 Hours (Table) 03/23/23 03/23/23 03/23/23 Range/Units 12:54 17:19 20:16 ESR (0-15) mm/hr Sodium (137-145) mmol/L Carbon Dioxide (22-30) mmol/L Glucose (74-99) mg/dL POC Glucose (mg/dL) 189 H 236 H 234 H (70-110) mg/dL Albumin (3.5-5.0) g/dL 03/24/23 03/24/23 03/24/23 Range/Units 05:37 05:45 05:45 ESR 34 H (0-15) mm/hr Sodium 134 L (137-145) mmol/L Carbon Dioxide 31 H (22-30) mmol/L Glucose 163 H (74-99) mg/dL POC Glucose (mg/dL) 173 H (70-110) mg/dL Albumin 3.2 L (3.5-5.0) g/dL Microbiology - Last 24 Hours (Table) 03/20/23 16:16 CSF Gram Stain - Preliminary Cerebral Spinal Fluid CSF Culture - Preliminary 03/20/23 16:54 Blood Culture - Preliminary Blood 03/20/23 21:00 Stool Culture - Final Stool Assessment and Plan (1) Meningitis Current Visit: Yes Status: Acute Code(s): G03.9 - MENINGITIS, UNSPECIFIED SNOMED Code(s): 3353654 Plan: 1patient present to hospital with sepsis in this patient with a fever elevated white count mild tachycardia did have significant headache and also is predominantly GI symptoms in this patient was on his boat the day before his symptoms started acutely suspicious for meningitis with a question of viral versus Listeria in this patient with predominant GI symptoms 2-patient did have LP and shows elevated protein and glucose and white cells mostly compatible with viral meningitis however keeping in mind mostly PMNs and moderate protein elevation possibility of Listeria is still there 3-We will continue the patient on ampicillin however discontinue Rocephin which was discontinued yesterday as well and discontinue acyclovir and no need for antiviral coverage, still waiting for the CSF studies to be completed at the bedside questions were answered Dictation was produced using [employer] dictation software. please excuse any grammatical, word or spelling errors. Time with Patient: Less than 30
--- NOTE | 2023-03-24 16:58 | P.PN ---
Subjective Progress Note Date: 03/24/23 I am following-up seeing the patient and feels about the same. Denies headache, nausea, vomiting, weakness, numbness. Objective - Vital Signs Vital signs: Vital Signs Temp 98.2 F 03/24/23 14:00 Pulse 75 03/24/23 14:00 Resp 16 03/24/23 14:00 BP 120/57 03/24/23 14:00 Pulse Ox 95 03/24/23 14:00 FiO2 Intake & Output 03/23/23 03/24/23 03/24/23 18:59 06:59 18:59 Weight 108.862 kg Other: Voiding Method Toilet Toilet # Voids 5 2 4 - Exam General the patient is lying in bed and is not in acute distress. Neuro- Patient is awake alert oriented to self place and time. His following simple commands. No aphasia and no neglect. Pupils are round equal and reactive to light. The pupils are round 4 mm bilaterally. Visual garcia are full to accommodation. Extra ocular movements intact no nystagmus. No facial weakness. No dysarthria. Motor is the strength is 5 out of 5 throughout. Normal tone and bulk. Sensation is normal to touch throughout Cerebellar somewhat slow with finger to nose over the right compared to the left. There is no ataxia or dysmetria - Labs CBC & Chem 7: 03/24/23 05:45 03/24/23 05:45 Labs: Abnormal Lab Results - Last 24 Hours (Table) 03/23/23 03/23/23 03/24/23 Range/Units 17:19 20:16 05:37 ESR (0-15) mm/hr Sodium (137-145) mmol/L Carbon Dioxide (22-30) mmol/L Glucose (74-99) mg/dL POC Glucose (mg/dL) 236 H 234 H 173 H (70-110) mg/dL Albumin (3.5-5.0) g/dL 03/24/23 03/24/23 03/24/23 Range/Units 05:45 05:45 12:28 ESR 34 H (0-15) mm/hr Sodium 134 L (137-145) mmol/L Carbon Dioxide 31 H (22-30) mmol/L Glucose 163 H (74-99) mg/dL POC Glucose (mg/dL) 181 H (70-110) mg/dL Albumin 3.2 L (3.5-5.0) g/dL Microbiology - Last 24 Hours (Table) 03/20/23 16:16 CSF Gram Stain - Preliminary Cerebral Spinal Fluid CSF Culture - Preliminary 03/20/23 16:54 Blood Culture - Preliminary Blood 03/20/23 21:00 Stool Culture - Final Stool Assessment and Plan Assessment: This is a 47-year-old gentleman who since March 15 2023 had a rash and later in the week he was more sleepy than usual, had fever, some headache nausea vomiting. CSF study shows nuclear cells of 303 with elevated protein and mild elevated glucose. His fever was as high as 103 in our facility which has resolved. Also had Leukocytosis with neurotrophilic. * Meningoencephalitis unknown exact cause. Examination he was also slow to perform finger to nose over the right compared to the left. His fevers and Leukocytosis has resolved. * Transient visual disturbance with seeing black dots, like grains of the black pepper spelled out in visual field. Symptoms resolved in 2-3 hours. Exact cause remains uncertain. It was not monocular, as it involved both eyes, involving all visual garcia. Uncertain if vascular or ictal or related to meningitis. * Diabetes * Hypertension Plan: * Pending MRI of the brain with and without especially on examination he was very slow performing finger to nose over the right. * ESR: 34 and CRP <0.5 * Routine EEG study preliminary report is a normal * 2-D echo: EF 50-55%. Moderate LVH. No significant valvular pathology identified. * Patient is currently on ampicillin per ID team since they're concerned that his symptoms is likely viral and concern is Listeria. Consider use of antiviral such as Acylclovir and Ceftriaxone. * Influenza A/B, SARS COV-2, Group A strep and RSV pCR are not detected. Comprehensive Viral CSF: negative. * Await West Nile virus, Listeria monocytogenes PCR. * Will defer the rest of medical management to the primary team. The plan is discussed with patient. Will continue to follow. Time with Patient: Less than 30
--- NOTE | 2023-03-24 17:27 | MR ---
PRE AND POSTCONTRAST ENHANCED MRI OF THE BRAIN: CLINICAL HISTORY: headache, fever and slow finger to nose on right CONTRAST: Gadavist 11ml COMPARISON: 03/19/2023 Multiplanar and multispin-echo imaging of the brain was performed both before and after the administr ation of contrast. The ventricles, basal cisterns and sulci overlying the cerebral convexities are within normal limits. There is no evidence for midline shift or mass effect. Acute intracranial hemorrhage or extra-axial collection is not evident. There are no abnormal areas of increased or decreased signal intensity within the brain parenchyma. Following contrast administration, there is no evidence for pathologic enhancement or enhancing mass. There is complete opacification right sphenoid sinus. Mild chronic ethmoidal sinusitis. Mucous retent ion cyst at the base of the left maxillary sinus. Mastoid air cells are well-aerated. IMPRESSION: Unremarkable pre and postcontrast enhanced MRI of the brain. Chronic sinusitis.
[2023-03-24 17:28] LABS: Glucose,Whole Blood 195 mg/dL (70-110)
[2023-03-24] MEDS: ATORVASTATIN 10 MG TAB PO SCH (20:47)
[2023-03-24] MEDS: lisinopriL 20 MG TAB PO SCH (20:47)
[2023-03-24 20:48] LABS: Glucose,Whole Blood 146 mg/dL (70-110)
[2023-03-25] MEDS: AMPICILLIN 2,000 MG in SODIUM CHLORIDE 0.9% 100 ML IVPB SCH ×7 (00:24→23:47)
[2023-03-25 07:29] LABS: Glucose,Whole Blood 153 mg/dL (70-110)
[2023-03-25] MEDS: INSULIN ASPART (NovoLOG) 100 UNIT/ML VIAL SQ SCH ×4 (07:43→20:35)
[2023-03-25] MEDS: ENOXAPARIN 40 MG/0.4 ML SYRINGE SQ SCH (07:44)
[2023-03-25 11:58] LABS: Glucose,Whole Blood 189 mg/dL (70-110)
--- NOTE | 2023-03-25 14:23 | P.PN ---
Subjective Progress Note Date: 03/25/23 I am following-up seeing the patient and he is accompanied with his . He feels drastically better. Denies of any headache, nausea, vomiting, focal weakness, numbness, visual disturbance. Objective - Vital Signs Vital signs: Vital Signs Temp 98.1 F 03/25/23 08:00 Pulse 65 03/25/23 08:00 Resp 16 03/25/23 08:00 BP 135/82 03/25/23 08:00 Pulse Ox 98 03/25/23 08:00 FiO2 Intake & Output 03/24/23 03/25/23 03/25/23 18:59 06:59 18:59 Weight 108.862 kg Other: Voiding Method Toilet Toilet Toilet # Voids 4 1 - Exam General the patient is lying in bed and is not in acute distress. Neuro- Patient is awake alert oriented to self place and time. His following simple commands. No aphasia and no neglect. Pupils are round equal and reactive to light. The pupils are round 4 mm bilaterally. Visual garcia are full to accommodation. Extra ocular movements intact no nystagmus. No facial weakness. No dysarthria. Motor: Gait is normal. Strength is 5 out of 5 throughout. Normal tone and bulk. Sensation is normal to touch throughout Cerebellar Normal finger to nose and heel to fernández bilaterally. - Labs CBC & Chem 7: 03/24/23 05:45 03/24/23 05:45 Labs: Abnormal Lab Results - Last 24 Hours (Table) 03/24/23 03/24/23 03/25/23 Range/Units 17:26 20:46 07:27 POC Glucose (mg/dL) 195 H 146 H 153 H (70-110) mg/dL 03/25/23 Range/Units 11:55 POC Glucose (mg/dL) 189 H (70-110) mg/dL Microbiology - Last 24 Hours (Table) 03/20/23 16:16 CSF Gram Stain - Final Cerebral Spinal Fluid CSF Culture - Final Assessment and Plan Assessment: This is a 47-year-old gentleman who since March 15 2023 had a rash and later in the week he was more sleepy than usual, had fever, some headache nausea vomiting. CSF study shows nuclear cells of 303 with elevated protein and mild elevated glucose. His fever was as high as 103 in our facility which has resolved. Also had Leukocytosis with neurotrophilic. * Meningoencephalitis unknown exact cause. Examination he was also slow to perf orm finger to nose over the right compared to the left that has improved today. His fevers and Leukocytosis has resolved. * Transient visual disturbance with seeing black dots, like grains of the black pepper spelled out in visual field. Symptoms resolved in 2-3 hours. Exact cause remains uncertain. It was not monocular, as it involved both eyes, involving all visual garcia. Uncertain if vascular or ictal or related to meningitis. * Diabetes * Hypertension Plan: * MRI of the brain with and without: Is reported as unremarkable pre and postconstrast enhanced MRI of brain. Chronic sinusitis. I personally reviewed it and feel there is maxillary sinus that is hyperintense on FLAIR and feel it enhanced on Gadolinium as well. I attempted to contact reading radiologist to re-review case but no response. Will try to get hold of reading radiologist tomorrow. * ESR: 34 and CRP <0.5 * Routine EEG study preliminary report is a normal * 2-D echo: EF 50-55%. Moderate LVH. No significant valvular pathology identified. * Patient is currently on ampicillin per ID team since they're concerned that his symptoms is likely viral and concern is Listeria. I spoke with Dr. River and he feels it is more GI related since had Nausea and vomiting. Will defer antibiotic/antiviral to IC team. * Influenza A/B, SARS COV-2, Group A strep and RSV pCR are not detected. Comprehensive Viral CSF: negative. * Await West Nile virus, Listeria monocytogenes PCR. * Will defer the rest of medical management to the primary team. The plan is discussed with patient, his who is at bedside and primary team. Will continue to follow. Time with Patient: Less than 30
--- NOTE | 2023-03-25 15:11 | P.PN ---
Subjective Progress Note Date: 03/25/23 Hospital Course: 47-year-old male with a past medical history of hypertension, hyperlipidemia, and jck-wvxpwct-[id number] diabetes mellitus. He presented to the emergency department on 03/19/23 secondary to intractable nausea and vomiting, generalized rash, and high fevers 1 week. Patient underwent full evaluation in the emergency department. Labs completed and reviewed. CBC showing leukocytosis with WBC count of 13.2. BMP showing mild prerenal azotemia with BUN of 23. Liver profile showing elevated total bili of 1.6. Lactate elevated at 2.5 with repeat lactate after bolus of 1.1. Influenza A, influenza B, RSV, and Covid PCR were all negative patient was admitted under our services with consultation to infectious disease. Patient continued to have elevated temps as high as 103.0F. He was started on steroids with Decadron and IV antibiotics with ampicillin 100 mg every 4 hours, Rocephin 2 g every 12 hours, and vancomycin. Lumbar puncture completed concerning for meningitis with 303 total nucleated cells, 93 glucose, and 190 protein. Steroids in vancomycin discontinued. Patient remains on ampicillin and Rocephin Group A strep PCR was negative. Diphtheria, listeria, and West Nile virus antibodies pending. Late afternoon on 03/22/23 patient had an isolated episode in which he was seeing black spots/floaters out of all garcia in bilateral eyes. He denied headache at this time and vital signs were unremarkable with blood pressure 113/69. This was discussed in detail with infectious disease and Consult was placed to neurology. Visual floaters lasting approximately 3 hours prior to spontaneously residing. MR brain does show right-sided sinusitis. Subjective: Patient seen and examined at bedside. No acute events overnight. Denies any headaches, nausea, vomiting, visual symptoms. Pertinent positives and negatives as discussed above, a complete review of systems was performed and all other systems are negative. Vitals Signs Reviewed. General: nontoxic, no distress, appears at stated age Derm: warm, dry Head: atraumatic, normocephalic, symmetric Eyes: EOMI, no lid lag, anicteric sclera Mouth: no lip lesion, mucus membranes moist Cardiovascular: S1S2 reg, no murmur Lungs: CTA bilateral, no rhonchi, no rales , no accessory muscle use Abdominal: soft, nontender to palpation, no guarding, no appreciable organomegaly Ext: no gross muscle atrophy, no edema, no contractures Neuro: CN II-XI grossly intact, no focal neuro deficits Psych: Alert, oriented, appropriate affect Data Reviewed Today: Pertinent Labs: Glucose ranged between 146-189 Imaging: No new imaging Assessment and Plan: Meningitis, unclear whether viral or bacterial Patient does have right sinusitis, dictated as chronic per radiology -West Nile virus antibody IgG and IgM, PCR for listeria monocytogenes, and Corynebacterium diphtheria cultures pending. -ID following, patient continued on ampicillin Transient episode of visual floaters lasting approximately 3 hours prior to resolving Headache, resolved -Discussed with neurology continue antibiotics, recommended antiviral Systemic Papular rash. Resolved Intractable nausea, vomiting, and diarrhea. Resolved Leukocytosis. Resolved Pyrexia. Resolved Lactic acidosis. Resolved Hypertension -Continue to monitor vital signs and continue daily medication regimen with lisinopril 20 mg nightly Hyperlipidemia -Continue daily medication regimen with atorvastatin 10 mg nightly. Type II kam-vjrqhpi-wlkdsmkgi diabetes mellitus with hyperglycemia -Hold oral hypoglycemic medications in place patient on glycemic protocol with NovoLog sliding scale to maintain tight glycemic control throughout hospitaliz ation. -Hemoglobin A1c 6.2%. DVT ppx: Lovenox Code status: Full code Anticipated discharge place: Pending clinical course Anticipated discharge time: Pending clinical course Objective - Vital Signs Vital signs: Vital Signs Temp 98.1 F 03/25/23 08:00 Pulse 65 03/25/23 08:00 Resp 16 03/25/23 08:00 BP 135/82 03/25/23 08:00 Pulse Ox 98 03/25/23 08:00 FiO2 Intake & Output 03/24/23 03/25/23 03/25/23 18:59 06:59 18:59 Weight 108.862 kg Other: Voiding Method Toilet Toilet Toilet # Voids 4 1 - Labs CBC & Chem 7: 03/24/23 05:45 03/24/23 05:45 Labs: Abnormal Lab Results - Last 24 Hours (Table) 03/24/23 03/24/23 03/25/23 Range/Units 17:26 20:46 07:27 POC Glucose (mg/dL) 195 H 146 H 153 H (70-110) mg/dL 03/25/23 Range/Units 11:55 POC Glucose (mg/dL) 189 H (70-110) mg/dL Microbiology - Last 24 Hours (Table) 03/20/23 16:16 CSF Gram Stain - Final Cerebral Spinal Fluid CSF Culture - Final
--- NOTE | 2023-03-25 15:31 | EEG ---
ELECTROENCEPHALOGRAM REPORT CLINICAL HISTORY: This is a 47-year-old gentleman with visual disturbance. The video EEG is obtained to evaluate for seizure and epileptiform activity. RELEVANT MEDICATION: The patient is not on any antiepileptic drugs. EEG TYPE: A routine 21-channel EEG with video using the 10/20 electrode placement system. DESCRIPTION: Wakefulness and drowsiness are obtained. During awake state, the posterior dominant rhythm consists of [id number] voltage of 10 hertz activity that is well modulated and well sustained. There is no physiological stage 2 sleep architecture. There is no focal slowing. INTERICTAL AND ICTAL: None. ACTIVATION PROCEDURE: Photic stimulation did not evoke a posterior driving response. There is no abnormality during the photic stimulation. Hyperventilation is not performed. CLINICAL INTERPRETATION: This is a normal routine EEG. There is no focal slowing, epileptiform discharge or seizure on the EEG. A normal routine EEG does not rule out underlying epilepsy. Clinical correlation is recommended. CRUZ / VERONICA: [id number] /
[2023-03-25 17:39] LABS: Glucose,Whole Blood 139 mg/dL (70-110)
[2023-03-25 20:16] LABS: Glucose,Whole Blood 181 mg/dL (70-110)
[2023-03-25] MEDS: lisinopriL 20 MG TAB PO SCH (20:35)
[2023-03-25] MEDS: ATORVASTATIN 10 MG TAB PO SCH (20:35)
[2023-03-26] MEDS: AMPICILLIN 2,000 MG in SODIUM CHLORIDE 0.9% 100 ML IVPB SCH ×3 (03:58→12:16)
[2023-03-26 06:04] LABS: Glucose,Whole Blood 138 mg/dL (70-110)
[2023-03-26] MEDS: INSULIN ASPART (NovoLOG) 100 UNIT/ML VIAL SQ SCH ×2 (06:05→12:15)
--- NOTE | 2023-03-26 06:21 | P.PN ---
Subjective Progress Note Date: 03/25/23 Principal diagnosis: Meningitis Patient is a 47-year-old with a past medical history significant for diabetes mellitus hypertension hyperlipidemia presented to the ER for evaluation of headache, patient initially started with a generalized body rash that was treated with steroids by the PCP for possible viral rash he also have a nausea vomiting diarrhea and headache patient did have a LP completed it shows elevated protein and glucose, WBC was also elevated. On today's evaluation that is 03/25/2023 the patient remains to be afebrile the patient is breathing comfortably on room air the patient denies having any headache no chest pain no shortness of breath or cough no nausea vomiting no abdominal pain and no diarrhea. No labs has been drawn today CSF viral PCR came back negative Objective - Vital Signs Vital signs: Vital Signs Temp 98.1 F 03/25/23 08:00 Pulse 65 03/25/23 08:00 Resp 16 03/25/23 08:00 BP 135/82 03/25/23 08:00 Pulse Ox 98 03/25/23 08:00 FiO2 Intake & Output 03/24/23 03/25/23 03/25/23 18:59 06:59 18:59 Weight 108.862 kg Other: Voiding Method Toilet Toilet Toilet # Voids 4 1 - Exam GENERAL DESCRIPTION: Middle-aged male lying in bed in no distress RESPIRATORY SYSTEM: Unlabored breathing , decreased breath sounds at bases HEART: S1 S2 regular rate and rhythm , ABDOMEN: Soft , no tenderness EXTREMITIES: No edema feet - Labs CBC & Chem 7: 03/24/23 05:45 03/24/23 05:45 Labs: Abnormal Lab Results - Last 24 Hours (Table) 03/24/23 03/24/23 03/24/23 Range/Units 12:28 17:26 20:46 POC Glucose (mg/dL) 181 H 195 H 146 H (70-110) mg/dL 03/25/23 Range/Units 07:27 POC Glucose (mg/dL) 153 H (70-110) mg/dL Microbiology - Last 24 Hours (Table) 03/20/23 16:16 CSF Gram Stain - Final Cerebral Spinal Fluid CSF Culture - Final Assessment and Plan (1) Meningitis Current Visit: Yes Status: Acute Code(s): G03.9 - MENINGITIS, UNSPECIFIED SNOMED Code(s): 2357419 Plan: 1patient present to hospital with sepsis in this patient with a fever elevated white count mild tachycardia did have significant headache and also is predominantly GI symptoms in this patient was on his boat the day before his symptoms started acutely suspicious for meningitis with a question of viral versus Listeria in this patient with predominant GI symptoms 2-patient did have LP and shows elevated protein and glucose and white cells mostly compatible with viral meningitis however keeping in mind mostly PMNs and moderate protein elevation possibility of Listeria is still there 3-3we are still waiting for the CSF Listeria PCR which is currently pending we will keep the patient on ampicillin no need for acyclovir discussed with the neurologist at the bedside she was updated about his care Dictation was produced using [employer] dictation software. please excuse any grammatical, word or spelling errors. Time with Patient: Greater than 30
[2023-03-26 07:22] VITALS: BP 126/75; PULSE 68; RESP 18; TEMP 98.2
[2023-03-26] MEDS: ENOXAPARIN 40 MG/0.4 ML SYRINGE SQ SCH (08:24)
[2023-03-26 12:13] LABS: Glucose,Whole Blood 156 mg/dL (70-110)
--- NOTE | 2023-03-26 13:01 | P.PN ---
Subjective Progress Note Date: 03/26/23 The patient is seen at bedside and feels about the same. Denies of any new neurological issues. Denies of headache, nausea, vomiting. Objective - Vital Signs Vital signs: Vital Signs Temp 98.2 F 03/26/23 07:21 Pulse 68 03/26/23 07:21 Resp 18 03/26/23 07:21 BP 126/75 03/26/23 07:21 Pulse Ox 98 03/26/23 07:21 FiO2 Intake & Output 03/25/23 03/26/23 03/26/23 18:59 06:59 18:59 Intake Total 118 90 Balance 118 90 Intake: Oral 118 90 Other: Voiding Method Toilet Toilet # Voids 1 2 0 - Exam General the patient is lying in bed and is not in acute distress. Neuro- Patient is awake alert oriented to self place and time. His following simple commands. No aphasia and no neglect. Pupils are round equal and reactive to light. The pupils are round 4 mm bilaterally. Visual garcia are full to accommodation. Extra ocular movements intact no nystagmus. No facial weakness. No dysarthria. Motor: Gait is normal. Strength is 5 out of 5 throughout. Normal tone and bulk. Sensation is normal to touch throughout Cerebellar Normal finger to nose and heel to fernández bilaterally. - Labs CBC & Chem 7: 03/24/23 05:45 03/24/23 05:45 Labs: Abnormal Lab Results - Last 24 Hours (Table) 03/25/23 03/25/23 03/26/23 Range/Units 17:38 20:15 06:03 POC Glucose (mg/dL) 139 H 181 H 138 H (70-110) mg/dL 03/26/23 Range/Units 12:09 POC Glucose (mg/dL) 156 H (70-110) mg/dL Microbiology - Last 24 Hours (Table) 03/20/23 16:54 Blood Culture - Final Blood Assessment and Plan Assessment: This is a 47-year-old gentleman who since March 15 2023 had a rash and later in the week he was more sleepy than usual, had fever, some headache nausea vomiting. CSF study shows nuclear cells of 303 with elevated protein and mild elevated glucose. His fever was as high as 103 in our facility which has resolved. Also had Leukocytosis with neurotrophilic. * Meningoencephalitis unknown exact cause. Examination he was also slow to perform finger to nose over the right compared to the left that has improved today. His fevers and Leukocytosis has resolved. * Transient visual disturbance with seeing black dots, like grains of the black pepper spelled out in visual field. Symptoms resolved in 2-3 hours. Exact cause remains uncertain. It was not monocular, as it involved both eyes, involving all visual garcia. Uncertain if vascular or ictal or related to meningitis. * Diabetes * Hypertension Plan: * MRI of the brain with and without: Is reported as unremarkable pre and postconstrast enhanced MRI of brain. Chronic sinusitis. I personally reviewed it and feel there is maxillary sinus that is hyperintense on FLAIR and feel it enhanced on Gadolinium as well. I spoke with Dr. Camacho today and he state it sinusitis and likely retaining of fluid and that is why enhances. * ESR: 34 and CRP <0.5 * Routine EEG study preliminary report is a normal * 2-D echo: EF 50-55%. Moderate LVH. No significant valvular pathology identified. * Patient is currently on ampicillin per ID team since they're concerned that his symptoms is likely viral and concern is Listeria. I spoke with Dr. River and he feels it is more GI related since had Nausea and vomiting. Will defer antibiotic/antiviral to I.D. team. * Influenza A/B, SARS COV-2, Group A strep and RSV pCR are not detected. Comprehensive Viral CSF: negative. * Await West Nile virus, Listeria monocytogenes PCR. * Will defer the rest of medical management to the primary team. The plan is discussed with patient, I.D. team and primary team. Time with Patient: Less than 30
--- NOTE | 2023-03-26 14:03 | P.DS ---
Providers Date of admission: 03/20/23 12:08 Expected date of discharge: 03/26/23 Attending physician: Emilio Ellis MD Consults: 03/19/23 23:15 Consult Physician Urgent Consulting Provider: Tricia River Consult Reason/Comments: fever, hypoxia, n/v/d Do you want consulting provider notified?: Yes 03/22/23 14:14 Consult Physician Urgent Consulting Provider: [place]oacano Damon Consult Reason/Comments: pt has meningitis, now seeing black floaters bilateral eyes Do you want consulting provider notified?: Yes Primary care physician: [facility] Course: Discharge Diagnosis: Meningitis, likely viral Chronic right-sided sinusitis Transient episode of visual floaters, spontaneously resolved Headache Systemic papular rash Intractable nausea, vomiting, and diarrhea Leukocytosis Pyrexia Lactic acidosis Hypertension Dyslipidemia Type 2 diabetes with hyperglycemia Hospital Course: 47-year-old male with a past medical history of hypertension, hyperlipidemia, and pdy-vwtvqhr-xfibjbvxr diabetes mellitus. He presented to the emergency department on 03/19/23 secondary to intractable nausea and vomiting, generalized rash, and high fevers 1 week. CBC showing leukocytosis with WBC count of 13.2. BMP showing mild prerenal azotemia with BUN of 23. Liver profile showing elevated total bili of 1.6. Lactate elevated at 2.5 with repeat lactate after bolus of 1.1. Influenza A, influenza B, RSV, and Covid PCR were all negative patient was admitted under our services with consultation to infectious disease. Patient continued to have elevated temps as high as 103.0F. He was started on steroids with Decadron and IV antibiotics with ampicillin 100 mg every 4 hours, Rocephin 2 g every 12 hours, and vancomycin. Lumbar puncture completed concerning for meningitis with 303 total nucleated cells with 36% mononuclear WBCs, 64% polynuclear WBCs, 93 glucose, and 190 protein. Steroids and vancomycin discontinued. Patient remains on ampicillin and Rocephin Group A strep PCR was negative. Diphtheria, listeria PCR negative. West Nile virus antibodies pending. Late afternoon on 03/22/23 patient had an isolated episode in which he was seeing black spots/floaters out of all garcia in bilateral eyes. He denied headache at this time and vital signs were unremarkable with blood pressure 113/69. This was discussed in detail with infectious disease and Consult was placed to neurology. Visual floaters lasting approximately 3 hours prior to spontaneously residing. MR brain does show right-sided sinusitis, likely chronic. Patient has been without fever for multiple days. Rashes resolved. Denies any further headaches. Patient to follow-up with ID as an outpatient. Patient seen and examined at bedside. Vital signs reviewed and stable. General: nontoxic, no distress, appears at stated age Derm: warm, dry Head: atraumatic, normocephalic, symmetric Eyes: EOMI, no lid lag, anicteric sclera Mouth: no lip lesion, mucus membranes moist Cardiovascular: S1S2 reg, no murmur Lungs: CTA bilateral, no rhonchi, no rales , no accessory muscle use Abdominal: soft, nontender to palpation, no guarding, no appreciable organomegaly Ext: no gross muscle atrophy, no edema, no contractures Neuro: CN II-XI grossly intact, no focal neuro deficits Psych: Alert, oriented, appropriate affect A total of 36 minutes of time were spent preparing this complex discharge summary. Patient was discharged on 03/26/23 at 13:35. Patient Condition at Discharge: Stable Plan - Discharge Summary Discharge Rx Participant: Yes New Discharge Prescriptions: Continue Semaglutide [Ozempic] 0.5 mg SQ SA metFORMIN HCL 500 mg PO BID Simvastatin [Zocor] 20 mg PO HS lisinopriL [Zestril] 20 mg PO HS Discharge Medication List Semaglutide [Ozempic] 0.5 mg SQ SA 03/07/22 [History] Simvastatin [Zocor] 20 mg PO HS 03/07/22 [History] lisinopriL [Zestril] 20 mg PO HS 03/07/22 [History] metFORMIN HCL 500 mg PO BID 03/07/22 [History] Follow up Appointment(s)/Referral(s): Clay Meyers DO [Primary Care Provider] - 1-2 days Tricia River MD [STAFF PHYSICIAN] - 04/06/23 2:15 pm Patient Instructions/Handouts: Viral Meningitis (DC) Activity/Diet/Wound Care/Special Instructions: Please see your PCP and ID. Still need to follow up on west nile virus results. Discharge Disposition: HOME SELF-CARE
--- NOTE | 2023-03-26 14:13 | P.PN ---
Subjective Progress Note Date: 03/26/23 Principal diagnosis: Meningitis Patient is a 47-year-old with a past medical history significant for diabetes mellitus hypertension hyperlipidemia presented to the ER for evaluation of headache, patient initially started with a generalized body rash that was treated with steroids by the PCP for possible viral rash he also have a nausea vomiting diarrhea and headache patient did have a LP completed it shows elevated protein and glucose, WBC was also elevated. On today's evaluation that is 03/26/2023 the patient denies having any fever or any chills, the patient is breathing comfortably on room air the patient denies having any headache for the last few days, the patient denies chest pain no shortness of breath or cough no nausea vomiting no abdominal pain and no diarrhea. Patient CSF encephalitis/ meningitis PCR came back negative Objective - Vital Signs Vital signs: Vital Signs Temp 98.2 F 03/26/23 07:21 Pulse 68 03/26/23 07:21 Resp 18 03/26/23 07:21 BP 126/75 03/26/23 07:21 Pulse Ox 98 03/26/23 07:21 FiO2 Intake & Output 03/25/23 03/26/23 03/26/23 18:59 06:59 18:59 Intake Total 118 90 Balance 118 90 Intake: Oral 118 90 Other: Voiding Method Toilet Toilet # Voids 1 2 0 - Exam GENERAL DESCRIPTION: Middle-aged male lying in bed in no distress RESPIRATORY SYSTEM: Unlabored breathing , decreased breath sounds at bases HEART: S1 S2 regular rate and rhythm , ABDOMEN: Soft , no tenderness EXTREMITIES: No edema feet - Labs CBC & Chem 7: 03/24/23 05:45 03/24/23 05:45 Labs: Abnormal Lab Results - Last 24 Hours (Table) 03/25/23 03/25/23 03/25/23 Range/Units 11:55 17:38 20:15 POC Glucose (mg/dL) 189 H 139 H 181 H (70-110) mg/dL 03/26/23 Range/Units 06:03 POC Glucose (mg/dL) 138 H (70-110) mg/dL Microbiology - Last 24 Hours (Table) 03/20/23 16:54 Blood Culture - Final Blood 03/20/23 16:16 CSF Gram Stain - Final Cerebral Spinal Fluid CSF Culture - Final Assessment and Plan (1) Meningitis Status: Acute Code(s): G03.9 - MENINGITIS, UNSPECIFIED SNOMED Code(s): 3317797 Plan: 1patient present to hospital with sepsis in this patient with a fever elevated white count mild tachycardia did have significant headache and also is predominantly GI symptoms in this patient was on his boat the day before his symptoms started acutely suspicious for meningitis with a question of viral versus Listeria in this patient with predominant GI symptoms 2-patient did have LP and shows elevated protein and glucose and white cells mostly compatible with viral meningitis however keeping in mind mostly PMNs and moderate protein elevation possibility of Listeria is still there , however the patient CSF PCR for Listeria and other bacteria came back negative making it to be less likely bacterial meningitis, patient can be discharged home on no antibiotics however detailed discussion with the patient and the if any recurrence of symptoms not to take it lightly and come back to the hospital right away Dictation was produced using [employer] dictation software. please excuse any grammatical, word or spelling errors. Time with Patient: Less than 30
[2023-04-02 14:36] LABS: West Nile Virus IgM Antibody 4.76 INDEX (<0.90)
== END 2023-03-26 13:50 | disposition home or self-care (01) | DRG 871 ==
LOC: EC 16:34 → 6NMEDSUR 23:17 → OBSVTOIN 03-20 12:08
PROVIDERS: ADMIT Internal Medicine; ATTEND Internal Medicine
PROC: 009U3ZX Drainage of Spinal Canal, Percutaneous Approach, Diagnostic (ICD-10-PCS; principal; 2023-03-20)
DX: A41.89 Other specified sepsis (principal); G04.90 Encephalitis and encephalomyelitis, unspecified; A08.4 Viral intestinal infection, unspecified; E78.5 Hyperlipidemia, unspecified; I11.9 Hypertensive heart disease without heart failure; R09.02 Hypoxemia; T38.0X5A Adverse effect of glucocorticoids and synthetic analogues, initial encounter; Z20.822 Contact with and (suspected) exposure to COVID-19; Z79.84 Long term (current) use of oral hypoglycemic drugs; Z79.899 Other long term (current) drug therapy
CPT/HCPCS: 36415; 62328; 70450; 70553; 71046; 80053; 81001; 82945; 83036; 83605; 83690; 83735; 84157; 84484; 85025; 85027; 85652; 86140; 86788; 86789; 87040; 87045; 87046; 87070; 87205; 87496; 87498; 87529; 87636; 87651; 87798; 89050; 93005; 93306; 95819; 96361; 96374; 96375; 99285